=== PATIENT | male | born 1930 | race Caucasian/White ===

== ENCOUNTER 2016-10-18 19:03 | Inpatient (IN) | payer OTHER ==
[~2016-10-18] VITALS: Ht 165.1 cm; Wt 63.5 kg
[~2016-10-18 19:03] MED LIST: ATOR20TA38 PO; CIPR500T4 PO; GLIM2TAB PO; IBUP200C11 PO; LANT3I SC; LOSA50TA6 PO
[2016-10-18] MEDS ORDERED: NITROGLYCERIN 2% 1 GM OINT PKT TD STA (21:49)
[2016-10-18] MEDS ORDERED: ASPIRIN 81 MG TAB PO STA (21:49)
[2016-10-18] MEDS ORDERED: NITROGLYCERIN (SL) 0.4 MG TAB SL PRN (22:00)
[2016-10-18] MEDS ORDERED: OMEP40CA6 PO (22:44)
[2016-10-18] MEDS ORDERED: LOSA100T7 PO (22:44)
[2016-10-18] MEDS ORDERED: TAMS0.4C2 PO (22:44)
--- NOTE | 2016-10-18 22:49 | ERA ---
ER Documentation Chief Complaint Date/Time DATE: 10/18/16 TIME: 22:47 Chief Complaint CP that started at 1730 when he was cooking pt has htn, DM hx HPI Patient is a 86-year-old male with hypertension and diabetes who presents with chest pain. The patient has chest pain and dizziness. The patient says that he "saw all black" today and almost or did pass out. It started yesterday and was there all day and then was there again today especially at 6 PM. The chest pain is now gone. He did have subjective fever at home but no cough and no urinary symptoms. Upon review of old medical records this is the patient's third visit to the ER. His primary doctor is Dr. Tracy. ROS All systems reviewed and are negative except as per history of present illness. Medications Home Meds Reported Medications Omeprazole* (Omeprazole*) 40 Mg Capsule.dr, 40 MG PO DAILY, #30 CAP 10/18/16 Tamsulosin Hcl* (Tamsulosin Hcl*) 0.4 Mg Cap.er.24h, 0.4 MG PO DAILY, CAP 10/18/16 Losartan Potassium* (Losartan Potassium*) 100 Mg Tablet, 100 MG PO DAILY, TAB 10/18/16 Atorvastatin Calcium* (Atorvastatin Calcium*) 20 Mg Tablet, 20 MG PO QHS, #30 TAB 11/08/15 Insulin Glargine* (Lantus*) 100 Unit/Ml Soln, 15 UNIT SC HS, EA 11/03/14 Glimepiride* (Glimepiride*) 2 Mg Tablet, 2 MG PO QAM, TAB 11/03/14 Discontinued Reported Medications Ibuprofen* (Advil*) 200 Mg Capsule, 200 MG PO Q6H Y for PAIN, CAP 11/08/15 Losartan Potassium* (Losartan Potassium*) 50 Mg Tablet, 50 MG PO DAILY, TAB 11/08/15 Discontinued Scripts Ciprofloxacin Hcl* (Ciprofloxacin Hcl*) 500 Mg Tablet, 500 MG PO BID for 10 Days , TAB Prov:IDRIS ZHU MD 11/08/15 Allergies Allergies: Coded Allergies: Penicillins (Verified Allergy, Unknown, 10/18/16) PMhx/Soc History of Surgery: Yes (TURP) Anesthesia Reaction: No Hx Neurological Disorder: No Hx Respiratory Disorders: No Hx Cardiac Disorders: Yes (HTN) Hx Psychiatric Problems: Yes (mild dementia) Hx Miscellaneous Medical Probl: Yes (HYPERCHOLESTEREMIA, DM) Hx Alcohol Use: No Hx Substance Use: No Hx Tobacco Use: No FmHx Family History: No coronary disease Physical Exam Vitals Vital Signs Date Time Temp Pulse Resp B/P Pulse Ox O2 Delivery O2 Flow Rate FiO2 10/18/16 19:28 100.2 82 18 213/86 96 Physical Exam Const: No acute distress Head: Atraumatic Eyes: Normal Conjunctiva ENT: Normal External Ears, Nose and Mouth. Neck: Full range of motion..~ No meningismus. Resp: Clear to auscultation bilaterally Cardio: Regular rate and rhythm, no murmurs Abd: Soft, non tender, non distended. Normal bowel sounds Skin: No petechiae or rashes Back: No midline or flank tenderness Ext: No cyanosis, or edema Neur: Awake and alert Psych: Normal Mood and Affect Results 24 hrs Laboratory Tests Test 10/18/16 19:34 Bedside Glucose 427mg/dL Current Medications Medications (Trade) Dose Ordered Sig/Tripp Route PRN Reason Start Time Stop Time Status Last Admin Dose Admin Aspirin (Aspirin) 162 mg ONCE STAT PO 10/18/16 21:49 10/18/16 21:50 DC Nitroglycerin (Nitroglycerin 2% Oint) 1 inch ONCE STAT TD 10/18/16 21:49 10/18/16 21:51 DC Nitroglycerin (Nitroglycerin (Sl Tab) 0.4 Mg) 1 tab Q5M UP TO 3 DOSES PRN SL CHEST PAIN 10/18/16 22:00 Ondansetron HCl (Zofran Inj) 4 mg ER BRIDGE PRN IV NAUSEA AND/OR VOMITING 10/18/16 23:00 10/19/16 22:59 Acetaminophen (Tylenol Tab) 650 mg ER BRIDGE PRN PO MILD PAIN/FEVER 10/18/16 23:00 10/19/16 22:59 Procedures/MDM EKG read by me: Rate/Rhythm: Regular rate and rhythm at a rate of 87 Intervals: Normal Impression: No evidence of ischemia or arrhythmia Chest x-ray pending. Patient is an 86-year-old male with diabetes and hypertension who presents with chest pain and dizziness. He also had a near syncope or syncope event. At this point I believe the patient will need admission to a telemetry bed. I spoke with Dr. Berger from the panel team for admission as the patient has preferred [facility] insurance Dr. Berger is admitting for the panel team tonight. Laboratory studies are pending at this time as well as chest x-ray. I am most concerned for possible acute coronary syndrome. At this point I doubt pulmonary embolism or aortic dissection. Chest x-ray is pending which can rule out pneumonia or pneumothorax. The patient was given aspirin and nitroglycerin. The patient was hypertensive but this was prior to nitroglycerin. Departure Diagnosis: Primary Impression: Chest pain Qualified Code: R07.9 - Chest pain, unspecified type Additional Impression: Hypertension Qualified Code: I10 - Essential hypertension Condition: HERB Lincoln MD Oct 18, 2016 22:49
[2016-10-18 22:52] LABS: BASOPHILS % 0.4 % (0.0-2.0); EOSINOPHILS % 0.1 % (0.0-7.0); HEMATOCRIT 42.7 % (42.0-52.0); HEMOGLOBIN 14.3 g/dl (14.0-18.0); LYMPHOCYTES # 1.5 10^3/ul (0.8-2.9); LYMPHOCYTES % 14.5 % (15.0-51.0); MEAN CORPUSCULAR HEMOGLOBIN 29.7 pg (29.0-33.0); MEAN CORPUSCULAR HGB CONC 33.6 g/dl (32.0-37.0); MEAN CORPUSCULAR VOLUME 88.5 fl (82.0-101.0); MEAN PLATELET VOLUME 7.3 fl (7.4-10.4); MONOCYTE # 0.9 10^3/ul (0.3-0.9); MONOCYTES % 8.4 % (0.0-11.0); NEUTROPHILS % 76.6 % (39.0-77.0); PLATELET COUNT 208 10^3/UL (140-440); RED BLOOD COUNT 4.83 10^6/ul (4.70-6.10); RED CELL DISTRIBUTION WIDTH 13.7 % (11.5-14.5); UNCORRECTED WBC 10.4 10^3/ul (4.8-10.8); WHITE BLOOD COUNT 10.4 10^3/ul (4.8-10.8)
[2016-10-18 22:53] LABS: CONDITION 1
[2016-10-18 22:58] LABS: POTASSIUM 3.9 mmol/L (3.5-5.1)
[2016-10-18 22:59] LABS: INR 1.02; PROTIME 13.4 Sec (12.2-14.2)
[2016-10-18 23:00] LABS: CREATININE 0.61 mg/dl (0.61-1.24)
[2016-10-18] MEDS ORDERED: ONDANSETRON 4 MG INJ IV PRN (23:00)
[2016-10-18] MEDS ORDERED: ACETAMINOPHEN 325 MG TAB PO PRN (23:00)
[2016-10-18 23:01] LABS: CALCIUM 9.4 mg/dl (8.4-10.2)
[2016-10-18 23:11] LABS: PARTIAL THROMBOPLASTIN TIME 28.1 Sec (25.0-35.0)
[2016-10-18 23:13] LABS: TROPONIN-I 0.014 ng/ml (0.00-0.12)
--- NOTE | 2016-10-18 23:22 | RADRPT ---
PROCEDURE: XR Chest. CLINICAL INDICATION: Shortness of breath. TECHNIQUE: Single frontal view. COMPARISON: 11/08/2015. FINDINGS: The lungs are clear. The heart size is normal. There is calcification in the aorta consistent with atherosclerosis. There is no pleural effusion. There is no pneumothorax. IMPRESSION: 1. Atherosclerosis. 2. Clear lungs. RPTAT: QQ .Linwood Jaramillo MD, MD Date Time Electronically viewed and signed by .Linwood Jaramillo MD, MD on 10/18/2016 23:22 .R/
[2016-10-19 05:03] LABS: CREATINE KINASE 36 IU/L (23-200)
[2016-10-19 05:32] LABS: CK-MB 0.58 ng/ml (0.0-2.4); TROPONIN-I < 0.012 ng/ml (0.00-0.12)
[2016-10-19] MEDS ORDERED: ALBUTEROL/IPRATROPIUM (NEB) 3 ML AMP HHN PRN (09:30)
[2016-10-19] MEDS ORDERED: ACETAMINOPHEN 325 MG TAB PO PRN (09:30)
[2016-10-19] MEDS ORDERED: NITROGLYCERIN (SL) 0.4 MG TAB SL PRN (09:30)
[2016-10-19] MEDS ORDERED: ONDANSETRON 4 MG INJ IV PRN (09:30)
[2016-10-19] MEDS ORDERED: NACL 0.9% 3 ML SYG IV SCH (09:30)
[2016-10-19] MEDS ORDERED: morphine 2 MG INJ IV PRN (09:30)
[2016-10-19] MEDS ORDERED: GLUCAGON 1 MG INJ IM PRN (10:00)
[2016-10-19] MEDS ORDERED: DEXTROSE 50% 50 ML SYRINGE IV PRN ×2 (10:00)
[2016-10-19] MEDS ORDERED: INSULIN GLARGINE [LANtus] 3 ML PEN SC SCH (10:00)
[2016-10-19] MEDS ORDERED: GLUCOSE GEL 15 GRAM TUBE BUCCAL PRN (10:00)
[2016-10-19] MEDS ORDERED: GLUCOSE GEL 15 GRAM TUBE PO PRN ×2 (10:00)
[2016-10-19 10:25] LABS: CREATINE KINASE 33 IU/L (23-200)
[2016-10-19] MEDS: TAMSULOSIN (SR) 0.4 MG CAP PO SCH (10:35)
[2016-10-19] MEDS: LOSARTAN 50 MG TAB PO SCH (10:35)
[2016-10-19] MEDS: PANTOPRAZOLE (EC) 40 MG TAB PO SCH (10:35)
[2016-10-19] MEDS: ASPIRIN 81 MG TAB PO SCH (10:35)
[2016-10-19] MEDS: ENOXAPARIN 40 MG/0.4 ML SYG SC SCH (10:36)
[2016-10-19 10:50] LABS: CK-MB 0.99 ng/ml (0.0-2.4); TROPONIN-I < 0.012 ng/ml (0.00-0.12)
--- NOTE | 2016-10-19 10:57 | HP ---
DATE OF ADMISSION: 10/18/2016 TIME SEEN: 2330. CHIEF COMPLAINT: Chest pain and lightheadedness. HISTORY OF PRESENT ILLNESS: The patient is an 86-year-old male with a history of hypertension, type 2 diabetes, dementia, BPH, and GERD who presented to the emergency department with lightheadedness/ dizziness, chest pain and some shortness of breath. When he presented to the ER his blood pressure was 213/86, heart rate 82, respiratory rate 18, temperature of 100.2, and oxygen saturation of 96%. There was no reported loss of consciousness, seizure-like activity, nausea, vomiting, abdominal pastor n, or urinary symptoms. REVIEW OF SYSTEMS: Negative except as mentioned in the HPI. PAST MEDICAL HISTORY: As per HPI. PAST SURGICAL HISTORY: Left hip surgery and cataract surgery. ALLERGIES: NO KNOWN DRUG ALLERGIES. HOME MEDICATIONS: 1. Insulin. 2. Flomax. 3. Lipitor. 4. Losartan. 5. Prilosec. PHYSICAL EXAMINATION: VITAL SIGNS: Stable. GENERAL: The patient lying in bed, sleepy, arousable, in no acute distress. HEENT: No obvious head deformity. Pupils reactive to light. Extraocular muscles intact. CARDIOVASCULAR: Regular rate and rhythm with no extra sounds. LUNGS: Clear. ABDOMEN: Soft, nontender, nondistended. Positive bowel sounds. EXTREMITIES: No focal deficits. IMPRESSION: 1. Hypertensive urgency. 2. Lightheadedness/dizziness, secondary to above. 3. Diabetes. 4. Dementia. 5. Benign prostatic hypertrophy. 6. Gastroesophageal reflux disease. 7. Low grade fever. PLAN: Continue telemetry monitoring. Will adjust the antihypertensives as needed for better blood pressure control. Will continue his home medication with adjustments. He will be on insulin for hi s diabetes. Will obtain a 2D echo and a carotid Doppler ultrasound. Will also do urine culture and if needed will do blood culture because of the low-grade fever. Dictated By: ALEXEI BROWNE/DAPHNE Conf#: [id number] DID#: [id number]
--- NOTE | 2016-10-19 11:42 | RADRPT ---
PROCEDURE: Carotid ultrasound CLINICAL INDICATION: Near syncope, carotid bruits TECHNIQUE: Padilla scale, color doppler, spectral doppler ultrasound of the bilateral carotid and felicia tebral arteries. This study indirectly references the measurement of the distal ICA diameter as the denominator for s tenosis measurement. Validated velocity measurements with angiographic measurements, velocity criter ia are extrapolated from diameter data as defined by: *Cartoid artery stenosis: padilla-scale and Doppl er US diagnosis. Society of Radiologists in Ultrasound Consensus Conference. Radiology 2003; 229: 34 0-346. SRU Consensus Conference Criteria for the Diagnosis of Carotid Artery Stenosis* Degree of Stenosis, % ICA PSV, cm/sec Plaque Estimate, % ICA/CCA PSV Ratio Normal <125 None <2.0 <50 <125 <50 <2.0 50 69 125-230 >50 2.0-4.0 >70 but less than near occlusion >230 >50 <4.0 Near occlusion High, low, or undetectable Visible Variable Total occlusion Undetectable Visible, no detectable lumen Not applicable COMPARISON: No prior studies are available for comparison. FINDINGS: Location Right CCA91 cm/sec Prox ICA 111 cm/sec Mid ICA65 cm/sec Dist ICA78 cm/sec QYI294 cm/sec ICA/CCA1.2 Left CCA72 cm/sec Prox ICA 73 cm/sec Mid ICA67 cm/sec Dist ICA61 cm/sec YYV362 cm/sec ICA/CCA1.0 Plaque burden: A small amount of plaque is present within the visualized portions of both internal c arotid arteries however there is no evidence of flow acceleration to suggest a hemodynamically signi ficant stenosis. Antegrade flow is seen within the vertebral arteries bilaterally. IMPRESSION: A small amount of plaque is present within the visualized portions of both internal carotid arteries however there is no evidence of flow acceleration to suggest a hemodynamically significant stenosis . RPTAT: AADD .Kodi Munoz MD, Date Time Electronically viewed and signed by .Kodi Munoz MD, on 10/19/2016 11:41 .B/
[2016-10-19] MEDS ORDERED: INSULIN ASPART [NOVOLOG] 3 ML PEN SC SCH (12:00)
[2016-10-19] MEDS: INSULIN ASPART [NOVOLOG] 3 ML PEN SC SCH ×4 (14:11→23:02)
--- NOTE | 2016-10-19 16:59 | PN ---
Date/Time of Note Date/Time of Note DATE: 10/19/16 TIME: 16:55 Assessment/Plan VTE Prophylaxis VTE Prophylaxis Intervention: LMWH Lines/Catheters IV [facility] Saline Lock Assessment/Plan Chief Complaint/Hosp Course Assessment and plan 1. Reported chest pain. Serial troponins negative thus far. Follow-up echocardiogram. 2. Hypertensive urgency. We'll continue on antihypertensives and adjust as needed. Stable at present 3. Type 2 diabetes. Follow up on A1c. We'll adjust basal and mealtime insulin. Of note patient family did report that patient is not completely compliant with insulin regimen at home. 4. History of dementia. Continue fall precautions 5. BPH. Patient to be resumed on his home medication GERD prophylaxis: PPI DVT prophylaxis: SCDs Disposition and plan: Loan Review Analyst follow. Follow-up with echocardiogram. We'll get physical therapy to follow. Discussed but of care with Dr. Osullivan Problems: Subjective 24 Hr Interval Summary Free Text/Dictation Resting at this time. No apparent distress. Appears comfortable at present Exam/Review of Systems Vital Signs Vitals Vital Signs Date Time Temp Pulse Resp B/P Pulse Ox O2 Delivery O2 Flow Rate FiO2 10/19/16 13:15 98.4 70 20 159/59 96 Room Air 4.0 Exam General: No acute signs or symptoms of distres Eyes: pupils equal round, Anicteric sclera Neck: Supple nontender, no JVD Cardiac: S1, S2 auscultated, regular rhythm and rate Pulmonary: No coarse rhonchi or breathing auscultated GI: Abdomen soft nontender nondistended, bowel sounds active Extremities: No edema bilateral lower extremities Skin: Clean dry and intact Neurologic: Alert to person place and time and situation Results Result Diagram: 10/18/16222910/18/162229 Results 24 hrs Laboratory Tests Test 10/18/16 19:34 10/18/16 22:30 10/19/16 04:15 10/19/16 10:00 Bedside Glucose 427 *H Activated Partial Thromboplast Time 28.1 Anion Gap 18 H Basophils # 0.0 Basophils % 0.4 Blood Morphology Comment Blood Urea Nitrogen 15 Calcium Level 9.4 Carbon Dioxide Level 28 Chloride Level 95 L Creatinine 0.61 Eosinophils # 0.0 Eosinophils % 0.1 Glucose Level 342 H Hematocrit 42.7 Hemoglobin 14.3 INR International Normalized Ratio 1.02 Lymphocytes # 1.5 Lymphocytes % 14.5 L Mean Corpuscular Hemoglobin 29.7 Mean Corpuscular Hemoglobin Concent 33.6 Mean Corpuscular Volume 88.5 Mean Platelet Volume 7.3 L Monocytes # 0.9 Monocytes % 8.4 Neutrophils # 8.0 H Neutrophils % 76.6 Nucleated Red Blood Cells # 0.0 Nucleated Red Blood Cells % 0.0 Platelet Count 208 # Potassium Level 3.9 Prothrombin Time 13.4 Prothrombin Time Ratio 1.0 Red Blood Count 4.83 Red Cell Distribution Width 13.7 Sodium Level 137 Troponin I 0.014 < 0.012 < 0.012 White Blood Count 10.4 # Creatine Kinase 36 33 Creatine Kinase Index 1.6 3.0 Creatinine Kinase MB (Mass) 0.58 0.99 Test 10/19/16 13:00 10/19/16 15:00 Bedside Glucose 335 H Troponin I < 0.012 Medications Medications Current Medications Ondansetron HCl (Zofran Inj) 4 mg Q6H PRN IV NAUSEA AND/OR VOMITING; Start 10/19 at 09:30 Aspirin (Aspirin) 81 mg DAILY PO Last administered on 10/19/16 10:35; Admin Dose 81 MG; Start 10/19/16 at 10:00 Nitroglycerin (Nitroglycerin (Sl Tab) 0.4 Mg) 1 tab Q5M PRN SL CHEST PAIN; Start 10/19/16 at 09:30 Acetaminophen (Tylenol Tab) 650 mg Q6H PRN PO PAIN LEVEL 1-3 OR FEVER; Start at 09:30 Morphine Sulfate (morphine) 2 mg Q4H PRN IV PAIN LEVEL 7-10; Start 10/19/16 at 09:30 Enoxaparin Sodium (Lovenox) 40 mg DAILY SC Last administered on 10/19/16 10:36 ; Admin Dose 40 MG; Start 10/19/16 at 10:00 Atorvastatin Calcium (Lipitor) 20 mg QHS PO ; Start 10/19/16 at 21:00 Losartan Potassium (Cozaar) 100 mg DAILY PO Last administered on 10/19/16 10:35 ; Admin Dose 100 MG; Start 10/19/16 at 10:00 Tamsulosin HCl (Flomax) 0.4 mg DAILY PO Last administered on 10/19/16 10:35; Admin Dose 0.4 MG; Start 10/19/16 at 10:00 Pantoprazole (Protonix Tab) 40 mg DAILY@06 PO Last administered on 10/19/16t 10: 35; Admin Dose 40 MG; Start 10/19/16 at 10:00 Miscellaneous Information 1 ea NOTE XX ; Start 10/19/16 at 10:00 Glucose (Glutose) 15 gm Q15M PRN PO DECREASED GLUCOSE; Start 10/19/16 at 10:00 Glucose (Glutose) 22.5 gm Q15M PRN PO DECREASED GLUCOSE; Start 10/19/16 at 10:00 Dextrose (D50w Syringe) 25 ml Q15M PRN IV DECREASED GLUCOSE; Start 10/19/16 at 10:00 Dextrose (D50w Syringe) 50 ml Q15M PRN IV DECREASED GLUCOSE; Start 10/19/16 at 10:00 Glucagon (Glucagen) 1 mg Q15M PRN IM DECREASED GLUCOSE; Start 10/19/16 at 10:00 Glucose (Glutose) 15 gm Q15M PRN BUCCAL DECREASED GLUCOSE; Start 10/19/16 at 10: 00 Insulin Glargine (Lantus) 25 unit QAM SC ; Start 10/20/16 at 09:00; Status WOOD PALACIO Oct 19, 2016 16:59
--- NOTE | 2016-10-19 19:59 | RADRPT ---
Echocardiogram Report Patient Name: SHELLY CHAWLA Gender: Male Date: 1930 Study Date: 19-Oct-2016 Curriculum Development Manager: Elizabeth Doan RDCS Location: 1 Ref. Physician: ALEXEI GRIFFIN Quality: Good Procedures: Transthoracic echocardiogram with complete 2D, M-Mode, and doppler examination. Indications: Chest Pain. Near Syncope. 2D/M Mode Doppler Measurement Value Normal Ranges Measurement Value Normal Ranges LVIDd 2D 4.6 3.5 - 5.6 cm AV Peak Micha 1.5 m/sec LVIDs 2D 2.2 2.1 - 4.1 cm AV Peak PG 9.0 mmHg FS 2D 51.6 % LVOT Peak Micha 1.1 m/sec LVPWd 2D 1.0 0.6 - 1.1 cm LVOT Peak PG 5.0 mmHg IVSd 2D 0.9 0.6 - 1.1 cm MV E Peak Micha 0.7 m/sec IVS/LVPW 2D 0.9 MV A Peak Micha 1.0 m/sec AoR Diam 2D 3.0 2.0 - 3.7 cm MV E/A 0.7 LA/Ao 2D 1 0 - 1 MV Decel Time 183 msec EDV 2D 96.7 cm3 MV E/A 0.7 ESV 2D 10.9 cm3 TR Peak Micha 2.5 m/sec LA Dimen 2D 3.2 2.3 - 4.0 cm TR Peak PG 24.0 mmHg RVSP 27.0 mmHg Findings Left Ventricle: Normal left ventricular systolic function. Normal left ventricular cavity size. Normal left ventricular wall thickness. Ejection fraction is visually estimated at 60 %. Tissue Doppler/Mitral Doppler indices are consistent with impaired relaxation (Stage I diastolic dysfunction). Right Ventricle: Normal right ventricular size. Normal right ventricular systolic function. Left Atrium: The left atrium is normal in size. Right Atrium: The right atrium is normal in size. Mitral Valve: Normal appearance of the mitral valve. Mild mitral annular calcification. Trace mitral regurgitation. Aortic Valve: No significant aortic stenosis or insufficiency. Aortic cusps appear mildly calcified. Tricuspid Valve: Normal appearance of the tricuspid valve. Estimated peak PA systolic pressure 27 mmHg. There is trace tricuspid regurgitation. Pericardium: Normal pericardium with no significant pericardial effusion. Aorta: Normal aortic root. IVC: Normal size and normal respiratory collapse consistent with normal right atrial pressure. Conclusions 1.Normal left ventricular systolic function. Normal left ventricular cavity size. Normal left ventricular wall thickness. Ejection fraction is visually estimated at 60 %. Tissue Doppler/Mitral Doppler indices are consistent with impaired relaxation (Stage I diastolic dysfunction). 2.Normal appearance of the mitral valve. Mild mitral annular calcification. Trace mitral regurgitation. 3.Normal appearance of the tricuspid valve. Estimated peak PA systolic pressure 27 mmHg. There is trace tricuspid regurgitation. Electronically Signed By: Jim Green 19-Oct-2016 19:58:34 -0800 Patient Name: SHELLY CHAWLA Study Date: 19-Oct-2016 [id number]
--- NOTE | 2016-10-19 20:37 | CONS ---
DATE OF ADMISSION: 10/18/2016 DATE OF CONSULTATION: 10/19/2016 REASON FOR CONSULTATION: Chest pain/assess for acute coronary syndrome. REQUESTING PHYSICIAN: Kodi Griffin MD/Wood Garsia NP HISTORY OF PRESENT ILLNESS: Mr. Wade is an 86-year-old male with history of hypertension, diabe patience mellitus, dementia, BPH, gastroesophageal reflux disease, who initially had complaints of shortn ess of breath, dizziness, lightheadedness, and substernal chest pain described as a pressure-like se nsation. Patient states symptoms have been ongoing for approximately 2 days. Upon arrival in the e mergency department, temperature of 100.2, blood pressure markedly elevated 213/80, pulse 82, respir ations 18, saturating 96%. The patient's labs revealed white blood count 10.4, hemoglobin 14.3, ligia telet count of 208,000. Sodium 137, potassium 3.9, creatinine 0.6, BUN 15, glucose 427. Troponin n egative. INR 1.0. The patient underwent a chest x-ray revealing atherosclerosis, but clear lungs. The patient underwent a carotid Doppler revealing a small amount plaque present within the left por tion of both internal carotids, however, no evidence for hemodynamically significant stenoses. The patient's electrocardiogram, normal sinus rhythm, rate of 87, normal axis, normal intervals, mild si nus arrhythmia with nonspecific ST-T abnormalities diffusely. The patient subsequently has been swapna ated with insulin for elevated blood sugars, aspirin, nitro paste 1 inch, and now awaits admit to [facility] floor for further evaluation and treatment. PAST MEDICAL HISTORY: As above in HPI. MEDICATIONS CURRENTLY IN HOSPITAL: 1. Lantus 25 units subQ q.a.m. 2. Lipitor 20 mg at bedtime. 3. Aspirin 81 mg daily. 4. Lovenox 40 mg subQ daily. 5. Cozaar 100 mg daily. 6. 0.4 mg daily. 7. Protonix 40 mg daily. 8. Tylenol p.r.n. 9. Morphine p.r.n. 10. DuoNeb p.r.n. 11. Zofran p.r.n. ALLERGIES: PENICILLIN. SOCIAL HISTORY: No tobacco, ETOH, or illicit drug use. FAMILY HISTORY: No history of sudden cardiac or early CAD. REVIEW OF SYSTEMS: As above in HPI. CONSTITUTIONAL: No fevers, chills. PULMONARY: Positive shortness of breath. CARDIOVASCULAR: Positive chest pain. GASTROINTESTINAL: No vomiting. GENITOURINARY: No hematuria. MUSCULOSKELETAL: Degenerative joint disease. PSYCHIATRIC: No documented psychiatric history. NEUROLOGIC: History of dementia. PHYSICAL EXAMINATION: VITAL SIGNS: Temperature of 98.9, blood pressure most recently of 149/52, pulse 74, respiratory rat e 20, saturating 100%. GENERAL: The patient is alert, awake, in no acute distress. NECK: JVP approximately 8 cm of water. CHEST: Fair movement throughout with mildly-decreased breath sounds at bases bilaterally. HEART: Regular rate and rhythm. Normal S1, S2, I/ systolic murmur, nondisplaced PMI. ABDOMEN: Positive bowel sounds, soft. EXTREMITIES: No edema, 1+ pulses bilaterally, posterior tibial. LABORATORIES: As above in HPI. Most recently from today, troponin negative x3. IMAGING STUDIES: As above in HPI. No further imaging studies for my review at this time. ECG: As above in HPI. No further electrocardiograms for my review at this time. IMPRESSION: 1. Chest pain, assess for acute coronary syndrome. 2. Abnormal electrocardiogram, assess for acute coronary syndrome. 3. Hypertension, slowly improving on oral antihypertensive, but continues to be mildly elevated. 4. Dyslipidemia. 5. Dizziness, rule out cardiac arrhythmia, rule out cardiac etiology. 6. Diabetes mellitus. RECOMMENDATIONS: 1. At this time, would admit patient to telemetry monitoring to continue to follow rhythm and rate control closely. 2. Continue the patient's current aspirin for prophylaxis against cardiovascular events. 3. Continue the patient's current losartan for control of blood pressure, and will additionally ini tiate the patient on a beta-radha in the setting of chest pain, EKG abnormalities, and to also imp rove systolic blood pressure, increase O2 demand. 4. Check a fasting lipid panel for general risk stratification, and adjust the patient's statin the rapy as necessary. 5. We will follow up the patient's 2D echo for assessment of ejection fraction, wall motion, and an y major valve abnormalities. Given the patient's multiple cardiac risk factors and abnormal cardiac findings, I believe this patient will benefit from further risk stratification as an inpatient with a Lexiscan stress test, will thus be scheduled to take place first thing in the morning. Thank you for allowing me to take part in the care of this patient. I will continue to follow along very closely with you. Further recommendations will be made as the patient progresses through his inpatient hospital course. Dictated By: LUIS MIGUEL SIFUENTES/DAPHNE Conf#: [id number] DID#: [id number] CC: WOOD GARSIA NP; KODI GRIFFIN MD;*EndCC*
[2016-10-19] MEDS: ATORVASTATIN 20 MG TAB PO SCH (20:42)
[2016-10-19] MEDS: METOPROLOL 25 MG TAB PO SCH (20:43)
[2016-10-19 20:49] VITALS: TEMP 97.7
[2016-10-19 22:00] VITALS: BP 131/62; PULSE 78; RESP 18
[2016-10-19 23:53] VITALS: PULSE 80
[2016-10-20] VITALS (16 sets, daily range): BP systolic 117–173; BP diastolic 57–80; PULSE 54–103; RESP 15–19; Ht 165.1 cm; Wt 63.5 kg
[2016-10-20] MEDS: PANTOPRAZOLE (EC) 40 MG TAB PO SCH (05:47)
[2016-10-20] MEDS: hydrALAzine 20 MG INJ IV PRN (05:47)
[2016-10-20 06:18] LABS: BASOPHILS % 0.5 % (0.0-2.0); EOSINOPHILS # 0.1 10^3/ul (0.0-0.5); HEMATOCRIT 36.9 % (42.0-52.0); HEMOGLOBIN 12.6 g/dl (14.0-18.0); LYMPHOCYTES # 1.5 10^3/ul (0.8-2.9); LYMPHOCYTES % 16.1 % (15.0-51.0); MEAN CORPUSCULAR HGB CONC 34.2 g/dl (32.0-37.0); MEAN CORPUSCULAR VOLUME 87.8 fl (82.0-101.0); MEAN PLATELET VOLUME 7.7 fl (7.4-10.4); MONOCYTE # 0.7 10^3/ul (0.3-0.9); MONOCYTES % 7.4 % (0.0-11.0); NEUTROPHIL # 6.8 10^3/ul (1.6-7.5); PLATELET COUNT 189 10^3/UL (140-440); RED BLOOD COUNT 4.21 10^6/ul (4.70-6.10); RED CELL DISTRIBUTION WIDTH 13.2 % (11.5-14.5); UNCORRECTED WBC 9.1 10^3/ul (4.8-10.8); WHITE BLOOD COUNT 9.1 10^3/ul (4.8-10.8)
[2016-10-20 06:39] LABS: ALBUMIN 3.1 g/dl (3.3-4.9)
[2016-10-20 06:40] LABS: POTASSIUM 3.9 mmol/L (3.5-5.1)
[2016-10-20 06:42] LABS: ALBUMIN/GLOBULIN RATIO 1.03; BILIRUBIN,INDIRECT 0.3 mg/dl (0-1.1); BILIRUBIN,TOTAL 0.3 mg/dl (0.2-1.3); CREATININE 0.63 mg/dl (0.61-1.24); TOTAL PROTEIN 6.1 g/dl (6.1-8.1)
[2016-10-20 06:43] LABS: CALCIUM 8.5 mg/dl (8.4-10.2); CHOL/HDL RATIO 3.7 RATIO; MAGNESIUM 1.6 mg/dl (1.7-2.5)
[2016-10-20 06:48] LABS: CONDITION 1
[2016-10-20 06:56] LABS: THYROID STIMULATING HORMONE 1.65 MIU/L (0.465-4.680)
[2016-10-20] MEDS: INSULIN ASPART [NOVOLOG] 3 ML PEN SC SCH ×7 (08:00→21:00)
[2016-10-20] MEDS: ASPIRIN 81 MG TAB PO SCH (08:26)
[2016-10-20] MEDS: LOSARTAN 50 MG TAB PO SCH (08:26)
[2016-10-20] MEDS: TAMSULOSIN (SR) 0.4 MG CAP PO SCH (08:26)
[2016-10-20] MEDS: METOPROLOL 25 MG TAB PO SCH (08:26)
[2016-10-20] MEDS: INSULIN GLARGINE [LANtus] 3 ML PEN SC SCH (08:29)
[2016-10-20] MEDS: ENOXAPARIN 40 MG/0.4 ML SYG SC SCH (08:30)
--- NOTE | 2016-10-20 10:24 | QN ---
Documentation Comment Response was called roughly around 10:05 AM. Patient was found to have heart rate in the 30s with also reported nonverbal for several seconds however there was no report of loss of consciousness. Was reported the patient was getting up from the chair and likely did vasovagal versus experience orthostatic hypotension. Patient was brought back to the bed,and tolerated well with HR going back into the 60s. no reports in drop of BP with systolic in 120s. Patient currently alert and oriented. No reports of chest pain/ dyspnea/ or headache. Stable at present. EKG done with normal sinus rhythm. no resp distress noted. Will check orthostatic vital signs. Cardiology to be notified Discussed with WOOD Max Oct 20, 2016 10:24
[2016-10-20] MEDS ORDERED: REGADENOSON 0.4 MG/5 ML SYG ONE (12:22)
--- NOTE | 2016-10-20 12:58 | CONS ---
Date/Time of Note Date/Time of Note DATE: 10/20/16 TIME: 12:53 Assessment/Plan Assessment/Plan Chief Complaint/Hosp Course IMPRESSION: 1. Chest pain, assess for acute coronary syndrome.-negative troponin x 3/NL EF by echo this admit 2. Abnormal electrocardiogram, assess for acute coronary syndrome. 3. Hypertension, slowly improving on oral antihypertensive, but continues to be mildly elevated. 4. Dyslipidemia. 5. Dizziness, rule out cardiac arrhythmia, rule out cardiac etiology.-had epsiode of bradycardia this AM to 30's 6. Diabetes mellitus. 7. Bradycardia to 30's this am with some dizziness. Self limited. Had just received BB/TSH WNL this admission ReccL: -Tele -d/c BB and follow rhythm/rate closely -Continue losartan -Continue statin -Lexiscan stress today Problems: Consultation Date/Type/Reason Admit Date/Time Oct 18, 2016 at 22:42 Initial Consult Date 10/19/2016 Type of Consultation: Cardiology Reason for Consultation Chest pain Referring Provider: HALEY CROWELL Exam/Review of Systems Vital Signs Vitals Vital Signs Date Time Temp Pulse Resp B/P Pulse Ox O2 Delivery O2 Flow Rate FiO2 10/20/16 12:40 70 10/20/16 12:38 Nasal Cannula 3.0 10/20/16 12:04 98.0 19 117/59 98 Intake and Output 10/19/16 10/19/16 10/20/16 15:00 23:00 07:00 Intake Total 200 ml Balance 200 ml Exam Review of Systems: CONSTITUTIONAL: No fevers, chills. PULMONARY: No sob CARDIOVASCULAR: No chest pain/palpitations GASTROINTESTINAL: No nausea/vomiting. GENITOURINARY: No hematuria/dysuria. MUSCULOSKELETAL: No myagias/arthalgias. PSYCHIATRIC: The patient denies depression. NEUROLOGIC: No weakness Constitutional: alert Psych: no complaints Head: normocephalic ENMT: mucosa pink and moist Neck: jvd (8cm water), supple Respiratory: clear to auscultation Cardiovascular: regular rate and rhythm Gastrointestinal: non-tender, soft Musculoskeletal: muscle tone (normal) Extremities: edema (None) Results Result Diagram: 10/20/16 0520 10/20/16 0520 Results 24 hrs Laboratory Tests Test 10/19/16 13:00 10/19/16 15:00 10/19/16 18:24 10/19/16 19:22 Bedside Glucose 335 H 247 H 247 H Troponin I < 0.012 Test 10/19/16 22:48 10/20/16 05:20 10/20/16 07:47 10/20/16 10:04 Bedside Glucose 287 H 273 H 218 Alanine Aminotransferase (ALT/SGPT) 35 Albumin 3.1 L Albumin/Globulin Ratio 1.03 Alkaline Phosphatase 90 Anion Gap 15 Aspartate Amino Transf (AST/SGOT) 24 Basophils # 0.0 Basophils % 0.5 Blood Urea Nitrogen 20 Calcium Level 8.5 Carbon Dioxide Level 26 Chloride Level 102 Cholesterol Level 135 Cholesterol/HDL Ratio 3.7 Creatinine 0.63 Direct Bilirubin 0.00 Eosinophils # 0.1 Eosinophils % 1.0 Globulin 3.00 Glucose Level 295 H HDL Cholesterol 36 Hematocrit 36.9 L Hemoglobin 12.6 L Hemoglobin A1c 11.9 H Indirect Bilirubin 0.3 LDL Cholesterol, Calculated 85 Lymphocytes # 1.5 Lymphocytes % 16.1 Magnesium Level 1.6 L Mean Corpuscular Hemoglobin 30.0 Mean Corpuscular Hemoglobin Concent 34.2 Mean Corpuscular Volume 87.8 Mean Platelet Volume 7.7 Monocytes # 0.7 Monocytes % 7.4 Neutrophils # 6.8 Neutrophils % 75.0 Nucleated Red Blood Cells # 0.0 Nucleated Red Blood Cells % 0.0 Platelet Count 189 Potassium Level 3.9 Red Blood Count 4.21 L Red Cell Distribution Width 13.2 Sodium Level 139 Thyroid Stimulating Hormone (TSH) 1.650 Total Bilirubin 0.3 Total Protein 6.1 Triglycerides Level 69 White Blood Count 9.1 Test 10/20/16 11:55 Bedside Glucose 203 Medications Medications Current Medications Ondansetron HCl (Zofran Inj) 4 mg Q6H PRN IV NAUSEA AND/OR VOMITING; Start 10/19 at 09:30 Aspirin (Aspirin) 81 mg DAILY PO Last administered on 10/20/16t 08:26; Admin Dose 81 MG; Start 10/19/16 at 10:00 Nitroglycerin (Nitroglycerin (Sl Tab) 0.4 Mg) 1 tab Q5M PRN SL CHEST PAIN; Start 10/19/16 at 09:30 Acetaminophen (Tylenol Tab) 650 mg Q6H PRN PO PAIN LEVEL 1-3 OR FEVER; Start at 09:30 Morphine Sulfate (morphine) 2 mg Q4H PRN IV PAIN LEVEL 7-10; Start 10/19/16 at 09:30 Enoxaparin Sodium (Lovenox) 40 mg DAILY SC Last administered on 10/20/16 08:30 ; Admin Dose 40 MG; Start 10/19/16 at 10:00 Atorvastatin Calcium (Lipitor) 20 mg QHS PO Last administered on 10/19/16 20:42 ; Admin Dose 20 MG; Start 10/19/16 at 21:00 Losartan Potassium (Cozaar) 100 mg DAILY PO Last administered on 10/20/16 08:26 ; Admin Dose 100 MG; Start 10/19/16 at 10:00 Tamsulosin HCl (Flomax) 0.4 mg DAILY PO Last administered on 10/20/16 08:26; Admin Dose 0.4 MG; Start 10/19/16 at 10:00 Pantoprazole (Protonix Tab) 40 mg DAILY@06 PO Last administered on 10/20/16 05: 47; Admin Dose 40 MG; Start 10/19/16 at 10:00 Miscellaneous Information 1 ea NOTE XX ; Start 10/19/16 at 10:00 Glucose (Glutose) 15 gm Q15M PRN PO DECREASED GLUCOSE; Start 10/19/16 at 10:00 Glucose (Glutose) 22.5 gm Q15M PRN PO DECREASED GLUCOSE; Start 10/19/16 at 10:00 Dextrose (D50w Syringe) 25 ml Q15M PRN IV DECREASED GLUCOSE; Start 10/19/16 at 10:00 Dextrose (D50w Syringe) 50 ml Q15M PRN IV DECREASED GLUCOSE; Start 10/19/16 at 10:00 Glucagon (Glucagen) 1 mg Q15M PRN IM DECREASED GLUCOSE; Start 10/19/16 at 10:00 Glucose (Glutose) 15 gm Q15M PRN BUCCAL DECREASED GLUCOSE; Start 10/19/16 at 10: 00 Insulin Glargine (Lantus) 25 unit QAM SC Last administered on 10/20/16 08:29; Admin Dose 25 UNIT; Start 10/20/16 at 09:00 Influenza Virus Vaccine (Fluzone) 0.5 ml ONCE ONCE IM* ; Start 10/22/16 at 09:00 ; Stop 10/22/16 at 09:01 Hydralazine HCl (Apresoline) 10 mg Q4H PRN IV prn for systolic above 160 Last administered on 10/20/16t 05:47; Admin Dose 10 MG; Start 10/20/16 at 06:00 LUIS MIGUEL BRYAN Oct 20, 2016 12:58
--- NOTE | 2016-10-20 15:13 | PN ---
Date/Time of Note Date/Time of Note DATE: 10/20/16 TIME: 15:08 Assessment/Plan VTE Prophylaxis VTE Prophylaxis Intervention: SCD's Lines/Catheters IV [facility] Type ([facility] Saline [facility] Urinary Cath still in place: No Assessment/Plan Chief Complaint/Hosp Course Assessment and plan 1. Reported chest pain. Serial troponins negative thus far. Echocardiogram Noted with ejection fraction of 60% with stage I diastolic dysfunction 2. Hypertensive urgency. We'll continue on antihypertensives and adjust as needed. Stable at present 3. Type 2 diabetes. Follow up on A1c. We'll adjust basal and mealtime insulin. Of note patient family did report that patient is not completely compliant with insulin regimen at home. 4. History of dementia. Continue fall precautions 5. BPH. Patient to be resumed on his home medication 6. Reported bradycardia as low as the 30s. Suspect vasovagal. Stable at present. Follow-up with cardiogenic recommendations. GERD prophylaxis: PPI DVT prophylaxis: SCDs Disposition and plan: Plan for stress test today. We'll follow-up with result. Insulin regimen to be adjusted. Discussed but of care with Dr. Osullivan Problems: Subjective 24 Hr Interval Summary Free Text/Dictation Did have ORE GRADER early this morning due to reported low heart rate. Improved at present. No apparent distress noted at this time. Exam/Review of Systems Vital Signs Vitals Vital Signs Date Time Temp Pulse Resp B/P Pulse Ox O2 Delivery O2 Flow Rate FiO2 10/20/16 12:40 70 10/20/16 12:38 Nasal Cannula 3.0 10/20/16 12:04 98.0 19 117/59 98 Intake and Output 10/19/16 10/19/16 10/20/16 15:00 23:00 07:00 Intake Total 200 ml Balance 200 ml Exam General: No acute signs or symptoms of distress Eyes: pupils equal round, Anicteric sclera Neck: Supple nontender, no JVD Cardiac: S1, S2 auscultated, regular rhythm and rate Pulmonary: No coarse rhonchi or breathing auscultated GI: Abdomen soft nontender nondistended, bowel sounds active Extremities: No edema bilateral lower extremities Skin: Clean dry and intact Neurologic: Alert to person place and time and situation Results Result Diagram: 10/20/16 0520 10/20/16 0520 Results 24 hrs Laboratory Tests Test 10/19/16 18:24 10/19/16 19:22 10/19/16 22:48 10/20/16 05:20 Bedside Glucose 247 H 247 H 287 H Alanine Aminotransferase (ALT/SGPT) 35 Albumin 3.1 L Albumin/Globulin Ratio 1.03 Alkaline Phosphatase 90 Anion Gap 15 Aspartate Amino Transf (AST/SGOT) 24 Basophils # 0.0 Basophils % 0.5 Blood Urea Nitrogen 20 Calcium Level 8.5 Carbon Dioxide Level 26 Chloride Level 102 Cholesterol Level 135 Cholesterol/HDL Ratio 3.7 Creatinine 0.63 Direct Bilirubin 0.00 Eosinophils # 0.1 Eosinophils % 1.0 Globulin 3.00 Glucose Level 295 H HDL Cholesterol 36 Hematocrit 36.9 L Hemoglobin 12.6 L Hemoglobin A1c 11.9 H Indirect Bilirubin 0.3 LDL Cholesterol, Calculated 85 Lymphocytes # 1.5 Lymphocytes % 16.1 Magnesium Level 1.6 L Mean Corpuscular Hemoglobin 30.0 Mean Corpuscular Hemoglobin Concent 34.2 Mean Corpuscular Volume 87.8 Mean Platelet Volume 7.7 Monocytes # 0.7 Monocytes % 7.4 Neutrophils # 6.8 Neutrophils % 75.0 Nucleated Red Blood Cells # 0.0 Nucleated Red Blood Cells % 0.0 Platelet Count 189 Potassium Level 3.9 Red Blood Count 4.21 L Red Cell Distribution Width 13.2 Sodium Level 139 Thyroid Stimulating Hormone (TSH) 1.650 Total Bilirubin 0.3 Total Protein 6.1 Triglycerides Level 69 White Blood Count 9.1 Test 10/20/16 07:47 10/20/16 10:04 10/20/16 11:55 Bedside Glucose 273 H 218 203 Medications Medications Current Medications Ondansetron HCl (Zofran Inj) 4 mg Q6H PRN IV NAUSEA AND/OR VOMITING; Start 10/19 at 09:30 Aspirin (Aspirin) 81 mg DAILY PO Last administered on 10/20/16t 08:26; Admin Dose 81 MG; Start 10/19/16 at 10:00 Nitroglycerin (Nitroglycerin (Sl Tab) 0.4 Mg) 1 tab Q5M PRN SL CHEST PAIN; Start 10/19/16 at 09:30 Acetaminophen (Tylenol Tab) 650 mg Q6H PRN PO PAIN LEVEL 1-3 OR FEVER; Start at 09:30 Morphine Sulfate (morphine) 2 mg Q4H PRN IV PAIN LEVEL 7-10; Start 10/19/16 at 09:30 Enoxaparin Sodium (Lovenox) 40 mg DAILY SC Last administered on 10/20/16 08:30 ; Admin Dose 40 MG; Start 10/19/16 at 10:00 Atorvastatin Calcium (Lipitor) 20 mg QHS PO Last administered on 10/19/16 20:42 ; Admin Dose 20 MG; Start 10/19/16 at 21:00 Losartan Potassium (Cozaar) 100 mg DAILY PO Last administered on 10/20/16 08:26 ; Admin Dose 100 MG; Start 10/19/16 at 10:00 Tamsulosin HCl (Flomax) 0.4 mg DAILY PO Last administered on 10/20/16 08:26; Admin Dose 0.4 MG; Start 10/19/16 at 10:00 Pantoprazole (Protonix Tab) 40 mg DAILY@06 PO Last administered on 10/20/16 05: 47; Admin Dose 40 MG; Start 10/19/16 at 10:00 Miscellaneous Information 1 ea NOTE XX ; Start 10/19/16 at 10:00 Glucose (Glutose) 15 gm Q15M PRN PO DECREASED GLUCOSE; Start 10/19/16 at 10:00 Glucose (Glutose) 22.5 gm Q15M PRN PO DECREASED GLUCOSE; Start 10/19/16 at 10:00 Dextrose (D50w Syringe) 25 ml Q15M PRN IV DECREASED GLUCOSE; Start 10/19/16 at 10:00 Dextrose (D50w Syringe) 50 ml Q15M PRN IV DECREASED GLUCOSE; Start 10/19/16 at 10:00 Glucagon (Glucagen) 1 mg Q15M PRN IM DECREASED GLUCOSE; Start 10/19/16 at 10:00 Glucose (Glutose) 15 gm Q15M PRN BUCCAL DECREASED GLUCOSE; Start 10/19/16 at 10: 00 Insulin Glargine (Lantus) 25 unit QAM SC Last administered on 10/20/16 08:29; Admin Dose 25 UNIT; Start 10/20/16 at 09:00 Influenza Virus Vaccine (Fluzone) 0.5 ml ONCE ONCE IM* ; Start 10/22/16 at 09:00 ; Stop 10/22/16 at 09:01 Hydralazine HCl (Apresoline) 10 mg Q4H PRN IV prn for systolic above 160 Last administered on 10/20/16t 05:47; Admin Dose 10 MG; Start 10/20/16 at 06:00 WOOD BRUCE Oct 20, 2016 15:12
[2016-10-20] MEDS ORDERED: MAGNESIUM SULFATE 2 GM/50 ML 50 ML IVPB ONE (15:30)
--- NOTE | 2016-10-20 15:32 | RADRPT ---
PROCEDURE: Lexiscan myocardial perfusion study CLINICAL INDICATION: 86 -year-old patient complaining of chest pain. TECHNIQUE: Lexiscan 0.4 mg intravenously separate acquisition gated myocardial perfusion SPECT usi ng Tc 99m Myoview 30.2 mCi intravenously at stress and Tc-99m Myoview, 9.8 mCi intravenously at rest was performed using the rest/stress sequence. Poststress Myoview SPECT images were obtained in the supine position. COMPARISON: No prior studies. FINDINGS: Perfusion images reveal mild nonreversible reduction in perfusion in the inferior wall, likely relat ed to patient motion. Lexiscan post stress gated SPECT images demonstrate no wall motion abnormalities. IMPRESSION: 1. No evidence of stress-induced ischemia. 2. No wall motion abnormalities. 3. The left ventricle ejection fraction at stress is 57% A call report was made to Dr. Green and 03:30 p.m. on October 20, 2016. RPTAT: HH .Lizzy Newberry MD, MD Date Time Electronically viewed and signed by .Lizzy Newberry MD, on 10/20/2016 15:32 .L/
--- NOTE | 2016-10-20 17:48 | CARRPT ---
DATE OF PROCEDURE: 10/20/2016 PROCEDURE: Lexiscan Cardiolite stress test, electrocardiogram portion INDICATION: Chest pain, assess for acute coronary syndrome, assess for ischemia. BASELINE VITAL SIGNS AND ELECTROCARDIOGRAM: Pulse 72, blood pressure 131/61. Electrocardiogram rev eals normal sinus rhythm, rate of 72, normal axis, left ventricular hypertrophy by voltage criteria with lateral T-wave inversion. PROCEDURE TECHNIQUE: The patient underwent standard Lexiscan infusion protocol over 10 seconds foll owed by radiolabeled tracer. The patient's test was stopped due to completion of protocol. Maximal achieved blood pressure during the test of 126/58. Maximum achieved heart rate during the test 80. ELECTROCARDIOGRAM FINDINGS: The patient did not develop any new Lexiscan-induced ST or T-wave fernandez es from baseline abnormalities. No documented PVCs. SYMPTOMS: The patient had complaints of shortness breath during stress test that resolved during re covery. IMPRESSION: 1. No Lexiscan-induced ST or T-wave changes from baseline abnormalities that are diagnostic for car diac ischemia. 2. Complaints of shortness of breath during stress test that resolved during recovery. 3. No documented premature ventricular contractions during stress testing. 4. Report of nuclear images to follow in separate dictation. Dictated By: LUIS MIGUEL SIFUENTES/DAPHNE Conf#: [id number] DID#: [id number] CC: HALEY CROWELL;*EndCC*
--- NOTE | 2016-10-20 18:41 | RADRPT ---
Vent Rate: 65 bpm RR Interval: 0 msec MD Interval: 182 msec QRS Duration: 100 msec QT Interval: 402 msec QTC Interval: 418 msec P-R-T [place]: 62 - 73 - 71 degrees Normal sinus rhythm Minimal voltage criteria for LVH, may be normal variant Borderline ECG Electronically Signed By: Jens Mascorro [id number]
--- NOTE | 2016-10-20 18:41 | RADRPT ---
Vent Rate: 105 bpm RR Interval: 0 msec [place] Interval: 174 msec QRS Duration: 100 msec QT Interval: 358 msec QTC Interval: 473 msec P-R-T [place]: 64 - 72 - 47 degrees Sinus tachycardia Left ventricular hypertrophy with repolarization abnormality Abnormal ECG Electronically Signed By: Jens Mascorro [id number]
[2016-10-20] MEDS: ATORVASTATIN 20 MG TAB PO SCH (21:55)
[2016-10-21] VITALS (11 sets, daily range): BP systolic 125–177; BP diastolic 62–93; PULSE 63–83; RESP 18–20
[2016-10-21] MEDS: PANTOPRAZOLE (EC) 40 MG TAB PO SCH (06:14)
[2016-10-21] MEDS: ASPIRIN 81 MG TAB PO SCH (08:21)
[2016-10-21] MEDS: LOSARTAN 50 MG TAB PO SCH (08:22)
[2016-10-21] MEDS: TAMSULOSIN (SR) 0.4 MG CAP PO SCH (08:22)
[2016-10-21] MEDS: INSULIN ASPART [NOVOLOG] 3 ML PEN SC SCH ×7 (08:29→20:10)
[2016-10-21] MEDS: ENOXAPARIN 40 MG/0.4 ML SYG SC SCH (08:30)
[2016-10-21] MEDS: INSULIN GLARGINE [LANtus] 3 ML PEN SC SCH (08:30)
--- NOTE | 2016-10-21 15:17 | CONS ---
Date/Time of Note Date/Time of Note DATE: 10/21/16 TIME: 15:14 Assessment/Plan Assessment/Plan Additional Assessment/Plan Atypical chest pain with hypertension and dyslipidemia, diabetes stress test no ischemia Ok for discahrge with losartan and lipitor Avoid AV Debbie blockers due h/o marked bradycardia Consultation Date/Type/Reason Admit Date/Time Oct 18, 2016 at 22:42 Psychological: no complaints Social History Smoking Status: Never smoker Exam/Review of Systems Vital Signs Vitals Vital Signs Date Time Temp Pulse Resp B/P Pulse Ox O2 Delivery O2 Flow Rate FiO2 10/21/16 12:04 83 10/21/16 11:47 98.1 18 159/82 95 10/21/16 07:41 Nasal Cannula 2.0 Intake and Output 10/20/16 10/20/16 10/21/16 15:00 23:00 07:00 Intake Total 50 ml Balance 50 ml Exam Constitutional: alert, oriented Head: atraumatic, normocephalic Eyes: EOMI, nl conjunctiva Neck: non-tender, supple Respiratory: clear to auscultation Cardiovascular: regular rate and rhythm Gastrointestinal: nl liver, spleen, non-tender, soft Extremities: normal pulses Results Result Diagram: 10/20/16 0520 10/20/16 0520 Results 24 hrs Laboratory Tests Test 10/20/16 17:05 10/20/16 21:54 10/21/16 07:37 10/21/16 11:37 Bedside Glucose 311 H 156 194 233 H Medications Medications Current Medications Ondansetron HCl (Zofran Inj) 4 mg Q6H PRN IV NAUSEA AND/OR VOMITING; Start 10/19 at 09:30 Aspirin (Aspirin) 81 mg DAILY PO Last administered on 10/21/16t 08:21; Admin Dose 81 MG; Start 10/19/16 at 10:00 Nitroglycerin (Nitroglycerin (Sl Tab) 0.4 Mg) 1 tab Q5M PRN SL CHEST PAIN; Start 10/19/16 at 09:30 Acetaminophen (Tylenol Tab) 650 mg Q6H PRN PO PAIN LEVEL 1-3 OR FEVER; Start at 09:30 Morphine Sulfate (morphine) 2 mg Q4H PRN IV PAIN LEVEL 7-10; Start 10/19/16 at 09:30 Enoxaparin Sodium (Lovenox) 40 mg DAILY SC Last administered on 10/21/16 08:30 ; Admin Dose 40 MG; Start 10/19/16 at 10:00 Atorvastatin Calcium (Lipitor) 20 mg QHS PO Last administered on 10/20/16 21:55 ; Admin Dose 20 MG; Start 10/19/16 at 21:00 Losartan Potassium (Cozaar) 100 mg DAILY PO Last administered on 10/21/16 08:22 ; Admin Dose 100 MG; Start 10/19/16 at 10:00 Tamsulosin HCl (Flomax) 0.4 mg DAILY PO Last administered on 10/21/16 08:22; Admin Dose 0.4 MG; Start 10/19/16 at 10:00 Pantoprazole (Protonix Tab) 40 mg DAILY@06 PO Last administered on 10/21/16 06: 14; Admin Dose 40 MG; Start 10/19/16 at 10:00 Miscellaneous Information 1 ea NOTE XX ; Start 10/19/16 at 10:00 Glucose (Glutose) 15 gm Q15M PRN PO DECREASED GLUCOSE; Start 10/19/16 at 10:00 Glucose (Glutose) 22.5 gm Q15M PRN PO DECREASED GLUCOSE; Start 10/19/16 at 10:00 Dextrose (D50w Syringe) 25 ml Q15M PRN IV DECREASED GLUCOSE; Start 10/19/16 at 10:00 Dextrose (D50w Syringe) 50 ml Q15M PRN IV DECREASED GLUCOSE; Start 10/19/16 at 10:00 Glucagon (Glucagen) 1 mg Q15M PRN IM DECREASED GLUCOSE; Start 10/19/16 at 10:00 Glucose (Glutose) 15 gm Q15M PRN BUCCAL DECREASED GLUCOSE; Start 10/19/16 at 10: 00 Influenza Virus Vaccine (Fluzone) 0.5 ml ONCE ONCE IM* ; Start 10/22/16 at 09:00 ; Stop 10/22/16 at 09:01 Hydralazine HCl (Apresoline) 10 mg Q4H PRN IV prn for systolic above 160 Last administered on 10/20/16 05:47; Admin Dose 10 MG; Start 10/20/16 at 06:00 Insulin Glargine (Lantus) 30 unit QAM SC ; Start 10/22/16 at 09:00 SON NASCIMENTO M.D. Oct 21, 2016 15:17
--- NOTE | 2016-10-21 17:01 | PN ---
Date/Time of Note Date/Time of Note DATE: 10/21/16 TIME: 16:59 Assessment/Plan VTE Prophylaxis VTE Prophylaxis Intervention: SCD's Lines/Catheters [facility] Urinary Cath still in place: No Assessment/Plan Chief Complaint/Hosp Course Assessment and plan 1. Reported chest pain. Serial troponins negative thus far. Echocardiogram Noted with ejection fraction of 60% with stage I diastolic dysfunction 2. Hypertensive urgency. We'll continue on antihypertensives and adjust as needed. Stable at present 3. Type 2 diabetes. Follow up on A1c. We'll adjust basal and mealtime insulin. Of note patient family did report that patient is not completely compliant with insulin regimen at home. 4. History of dementia. Continue fall precautions 5. BPH. Patient to be resumed on his home medication 6. Reported bradycardia as low as the 30s. Suspect vasovagal. Stable at present. Follow-up with cardiogenic recommendations. GERD prophylaxis: PPI DVT prophylaxis: SCDs Disposition and plan: Denies any chest pain or shortness of breath. Discussed with appetizer packer, will monitor patient off of beta radha at this time due to reported bradycardia. Anticipate discharge in a.m. if no further bradycardia noted. Continue inpatient monitoring Discussed but of care with Dr. Ousllivan Problems: Subjective 24 Hr Interval Summary Free Text/Dictation No apparent distress noted at this time. Comfortable at present. Denies any chest pain. Exam/Review of Systems Vital Signs Vitals Vital Signs Date Time Temp Pulse Resp B/P Pulse Ox O2 Delivery O2 Flow Rate FiO2 10/21/16 16:27 98.3 80 18 134/62 95 10/21/16 07:41 Nasal Cannula 2.0 Intake and Output 10/20/16 10/20/16 10/21/16 15:00 23:00 07:00 Intake Total 50 ml Balance 50 ml Exam General: No acute signs or symptoms of distress Eyes: pupils equal round, Anicteric sclera Neck: Supple nontender, no JVD Cardiac: S1, S2 auscultated, regular rhythm and rate Pulmonary: No coarse rhonchi or breathing auscultated GI: Abdomen soft nontender nondistended, bowel sounds active Extremities: No edema bilateral lower extremities Skin: Clean dry and intact Neurologic: Alert to person place and time and situation Results Result Diagram: 10/20/1651910/20/16 0520 Results 24 hrs Laboratory Tests Test 2/3/17 17:05 10/20/16 21:54 10/21/16 07:37 10/21/16 11:37 Bedside Glucose 311 H 156 194 233 H Medications Medications Current Medications Ondansetron HCl (Zofran Inj) 4 mg Q6H PRN IV NAUSEA AND/OR VOMITING; Start 10/19 at 09:30 Aspirin (Aspirin) 81 mg DAILY PO Last administered on 10/21/16 08:21; Admin Dose 81 MG; Start 10/19/16 at 10:00 Nitroglycerin (Nitroglycerin (Sl Tab) 0.4 Mg) 1 tab Q5M PRN SL CHEST PAIN; Start 10/19/16 at 09:30 Acetaminophen (Tylenol Tab) 650 mg Q6H PRN PO PAIN LEVEL 1-3 OR FEVER; Start at 09:30 Morphine Sulfate (morphine) 2 mg Q4H PRN IV PAIN LEVEL 7-10; Start 10/19/16 at 09:30 Enoxaparin Sodium (Lovenox) 40 mg DAILY SC Last administered on 10/21/16 08:30 ; Admin Dose 40 MG; Start 10/19/16 at 10:00 Atorvastatin Calcium (Lipitor) 20 mg QHS PO Last administered on 10/20/16 21:55 ; Admin Dose 20 MG; Start 10/19/16 at 21:00 Losartan Potassium (Cozaar) 100 mg DAILY PO Last administered on 10/21/16 08:22 ; Admin Dose 100 MG; Start 10/19/16 at 10:00 Tamsulosin HCl (Flomax) 0.4 mg DAILY PO Last administered on 10/21/16 08:22; Admin Dose 0.4 MG; Start 10/19/16 at 10:00 Pantoprazole (Protonix Tab) 40 mg DAILY@06 PO Last administered on 10/21/16 06: 14; Admin Dose 40 MG; Start 10/19/16 at 10:00 Miscellaneous Information 1 ea NOTE XX ; Start 10/19/16 at 10:00 Glucose (Glutose) 15 gm Q15M PRN PO DECREASED GLUCOSE; Start 10/19/16 at 10:00 Glucose (Glutose) 22.5 gm Q15M PRN PO DECREASED GLUCOSE; Start 10/19/16 at 10:00 Dextrose (D50w Syringe) 25 ml Q15M PRN IV DECREASED GLUCOSE; Start 10/19/16 at 10:00 Dextrose (D50w Syringe) 50 ml Q15M PRN IV DECREASED GLUCOSE; Start 10/19/16 at 10:00 Glucagon (Glucagen) 1 mg Q15M PRN IM DECREASED GLUCOSE; Start 10/19/16 at 10:00 Glucose (Glutose) 15 gm Q15M PRN BUCCAL DECREASED GLUCOSE; Start 10/19/16 at 10: 00 Influenza Virus Vaccine (Fluzone) 0.5 ml ONCE ONCE IM* ; Start 10/22/16 at 09:00 ; Stop 10/22/16 at 09:01 Hydralazine HCl (Apresoline) 10 mg Q4H PRN IV prn for systolic above 160 Last administered on 10/20/16t 05:47; Admin Dose 10 MG; Start 10/20/16 at 06:00 Insulin Glargine (Lantus) 30 unit QAM SC ; Start 10/22/16 at 09:00 WOOD BRUCE Oct 21, 2016 17:01
[2016-10-21] MEDS: ATORVASTATIN 20 MG TAB PO SCH (20:04)
[2016-10-22] VITALS (9 sets, daily range): BP systolic 123–188; BP diastolic 58–82; PULSE 60–85; RESP 18–20
[2016-10-22] MEDS: hydrALAzine 20 MG INJ IV PRN (03:50)
[2016-10-22] MEDS: PANTOPRAZOLE (EC) 40 MG TAB PO SCH (06:02)
[2016-10-22] MEDS: INSULIN ASPART [NOVOLOG] 3 ML PEN SC SCH ×4 (08:00→12:47)
[2016-10-22] MEDS: ASPIRIN 81 MG TAB PO SCH (08:45)
[2016-10-22] MEDS: LOSARTAN 50 MG TAB PO SCH (08:46)
[2016-10-22] MEDS: TAMSULOSIN (SR) 0.4 MG CAP PO SCH (08:46)
[2016-10-22] MEDS ORDERED: INFLUENZA VIRUS VACCINE 0.5 ML (DISPENSING) IM* ONE (09:00)
[2016-10-22] MEDS ORDERED: INSULIN GLARGINE [LANtus] 3 ML PEN SC SCH (09:00)
[2016-10-22] MEDS: ENOXAPARIN 40 MG/0.4 ML SYG SC SCH (09:02)
[2016-10-22] MEDS ORDERED: LOSA50TA2 PO (09:35)
[2016-10-22] MEDS ORDERED: ASPI81TA3 PO (09:35)
[2016-10-22] MEDS ORDERED: LANT3I SC (09:35)
[2016-10-22] MEDS ORDERED: ATOR20TA65 PO (09:35)
[2016-10-22] MEDS ORDERED: TAMS-14 PO (09:35)
--- NOTE | 2016-10-22 09:37 | PDOCDIS ---
Discharge Instructions DIAGNOSIS Discharge Diagnosis: 1. Chest pain 2. Bradycardia 3. Diabetes 4. Dyslipidemia CONDITION Patient Condition: Stable HOME CARE INSTRUCTIONS: Special Diet: 1800 Silverio Diet FOLLOW UP/APPOINTMENTS Appointments 1. Follow up with Dr. Jim Green in one week 2. Follow up with your primary care provider in 1-2 weeks OTHER ORDERS: Other Orders: 1. Call 911 for worsening Chest pain or shortness of breath WOOD BRUCE Oct 22, 2016 09:37
--- NOTE | 2016-10-22 13:18 | DS ---
Date/Time of Note Date/Time of Note DATE: 10/22/16 TIME: 13:14 Discharge Summary Admission/Discharge Info Admit Date/Time Oct 18, 2016 at 22:42 Discharge Date/Time Final Diagnosis 1. Reported chest pain. 2. Hypertensive urgency. 3. Type 2 diabetes. 4. History of dementia. 5. BPH. 6. Bradycardia Patient Condition: Stable Consults 1. Dr. Jim Green Hospital Course This is an 86-year-old male with history of hypertension, type 2 diabetes, dementia, BPH, GERD, who came to [facility] due to reports of lightheadedness/dizziness. He also did report having some chest discomfort and chest pain with shortness of breath. On admission to the hospital he was noted with a blood pressure of 213/86. Patient was optimized with his cardio vascular medications and place on antihypertensives. He did have good response. Due to patient's comorbidities he was also seen by cardiology as. He did undergo Lexiscan stress test which was negative for any ischemia. Additionally the patient also did have echocardiogram that did show him to have an ejection fraction of 60% with stage I diastolic dysfunction. Was optimized with his cardiovascular medications. Patient did have episode of sinus bradycardia as low as 30s. After review patient did have his beta radha medication discontinued per editor continuity and script recommendations. During his course of stay did improve. He was otherwise optimized medically. He was continued on insulin for his diabetes. He was also placed on fall precautions for his history of dementia. We did resume his home Flomax for his BPH. His bradycardia did stabilize after beta radha was removed. The plan of care was discussed with the patient and family and family did verbalize understanding. On the day of discharge patient was in stable condition Discussed but of care with Dr. Osullivan Discharge process time is 40 minutes Disposition: Home with home health services. Home Meds Active Scripts Tamsulosin Hcl* (Flomax*) 0.4 Mg Cap.er.24h, 0.4 MG PO DAILY for 30 Days, CAP Prov:WOOD BRUCE 10/22/16 Losartan Potassium* (Cozaar*) 50 Mg Tablet, 100 MG PO DAILY for 30 Days, TAB Prov:WOOD BRUCE 10/22/16 Insulin Glargine* (Lantus*) 100 Unit/Ml Soln, 30 UNIT SC QAM for 30 Days Prov:WOOD BRUCE 10/22/16 Atorvastatin Calcium (Atorvastatin Calcium) 20 Mg Tablet, 20 MG PO QHS for 30 Days, TAB Prov:WOOD BRUCE 10/22/16 Aspirin (Aspirin) 81 Mg Chew, 81 MG PO DAILY for 30 Days, TAB Prov:WOOD BRUCE 10/22/16 Reported Medications Omeprazole* (Omeprazole*) 40 Mg Capsule.dr, 40 MG PO DAILY, #30 CAP 10/18/16 Discontinued Reported Medications Tamsulosin Hcl* (Tamsulosin Hcl*) 0.4 Mg Cap.er.24h, 0.4 MG PO DAILY, CAP 10/18/16 Losartan Potassium* (Losartan Potassium*) 100 Mg Tablet, 100 MG PO DAILY, TAB 10/18/16 Atorvastatin Calcium* (Atorvastatin Calcium*) 20 Mg Tablet, 20 MG PO QHS, #30 TAB 11/08/15 Insulin Glargine* (Lantus*) 100 Unit/Ml Soln, 15 UNIT SC HS, EA 11/03/14 Glimepiride* (Glimepiride*) 2 Mg Tablet, 2 MG PO QAM, TAB 11/03/14 Ibuprofen* (Advil*) 200 Mg Capsule, 200 MG PO Q6H Y for PAIN, CAP 11/08/15 Losartan Potassium* (Losartan Potassium*) 50 Mg Tablet, 50 MG PO DAILY, TAB 11/08/15 Discontinued Scripts Ciprofloxacin Hcl* (Ciprofloxacin Hcl*) 500 Mg Tablet, 500 MG PO BID for 10 Days , TAB Prov:IDRIS ZHU MD 11/08/15 Follow-up Plan CONDITION Patient Condition: Stable HOME CARE INSTRUCTIONS: Special Diet: 1800 Silverio Diet FOLLOW UP/APPOINTMENTS Appointments 1. Follow up with Dr. Jim Green in one week 2. Follow up with your primary care provider in 1-2 weeks OTHER ORDERS: Other Orders: 1. Call 911 for worsening Chest pain or shortness of breath Pending Labs Laboratory Tests Test 10/21/16 17:14 10/21/16 20:09 10/22/16 07:59 10/22/16 12:41 Bedside Glucose 101mg/dL (70-220) 115mg/dL (70-220) 138mg/dL (70-220) 176mg/dL (70-220) WOOD BRUCE Oct 22, 2016 13:18
== END 2016-10-22 15:00 | disposition home health service (06) | DRG 305 ==
LOC: E/R 19:03 → TEL 22:42 → MS4 10-19 23:39
PROVIDERS: ADMIT Internal Medicine; ATTEND Internal Medicine
DX: I16.0 Hypertensive urgency (principal); F03.90 Unspecified dementia, unspecified severity, without behavioral disturbance, psychotic disturbance, mood disturbance, and anxiety; R00.1 Bradycardia, unspecified; E11.9 Type 2 diabetes mellitus without complications; N40.0 Benign prostatic hyperplasia without lower urinary tract symptoms; K21.9 Gastro-esophageal reflux disease without esophagitis; Z79.4 Long term (current) use of insulin; Z79.82 Long term (current) use of aspirin
CPT/HCPCS: 36415; 71010; 78452; 80048; 80053; 80061; 82550; 82553; 82962; 83036; 83735; 84443; 84484; 85025; 85610; 85730; 90686; 93005; 93017; 93306; 93880; 96372; 96374; A9500; A9505; J0360; J1650; J1815; J2405; J2785; J3475

== ENCOUNTER 2017-09-04 11:25 | Observation (INO) | payer MEDICARE, OTHER ==
[~2017-09-04] VITALS: Ht 170.2 cm; Wt 63.0 kg
[~2017-09-04 11:25] MED LIST changes: +ASPI81TA3 PO; -ATOR20TA38 PO; +ATOR20TA65 PO; -CIPR500T4 PO; -GLIM2TAB PO; -IBUP200C11 PO; +LOSA50TA2 PO; -LOSA50TA6 PO; +OMEP40CA6 PO; +TAMS-14 PO
[2017-09-04] MEDS ORDERED: SOD CHLORIDE 0.9% 1,000 ML IV STA (11:53)
[2017-09-04] MEDS ORDERED: ASPIRIN (EC) 325 MG TAB PO ONE (12:00)
[2017-09-04 12:17] LABS: BASOPHIL # 0.1 10^3/ul (0.0-0.1); BASOPHILS % 1.2 % (0.0-2.0); EOSINOPHILS # 0.1 10^3/ul (0.0-0.5); EOSINOPHILS % 2.4 % (0.0-7.0); HEMATOCRIT 34.5 % (42.0-52.0); LYMPHOCYTES # 2.2 10^3/ul (0.8-2.9); LYMPHOCYTES % 36.6 % (15.0-51.0); MEAN CORPUSCULAR HEMOGLOBIN 29.8 pg (29.0-33.0); MEAN CORPUSCULAR HGB CONC 34.8 g/dl (32.0-37.0); MEAN CORPUSCULAR VOLUME 85.6 fl (82.0-101.0); MEAN PLATELET VOLUME 9.4 fl (7.4-10.4); MONOCYTE # 0.6 10^3/ul (0.3-0.9); MONOCYTES % 9.7 % (0.0-11.0); NEUTROPHIL # 2.9 10^3/ul (1.6-7.5); NEUTROPHILS % 49.9 % (39.0-77.0); PLATELET COUNT 233 10^3/UL (140-415); RED BLOOD COUNT 4.03 10^6/ul (4.70-6.10); RED CELL DISTRIBUTION WIDTH 12.8 % (11.5-14.5); WHITE BLOOD COUNT 5.9 10^3/ul (4.8-10.8)
--- NOTE | 2017-09-04 12:41 | RADRPT ---
PROCEDURE: XR Chest. CLINICAL INDICATION: Patient experiencing Syncope. TECHNIQUE: Single frontal view of the chest was obtained COMPARISON: Chest radiograph dated October 18, 2016. FINDINGS: The heart and mediastinum are within normal limits. Aortic calcifications are present. There is mild pulmonary vascular congestion. No focal consolidations, pleural effusions, or pneumoth orax. Degenerative changes of the spine and shoulder joints are present. IMPRESSION: 1. Mild pulmonary vascular congestion with no focal consolidations. RPTAT:AAJJ Physician [place] Date Time Electronically viewed and signed by Krystal Mcmanus Physician on 09/04/2017 12:40 QL/
[2017-09-04 12:42] LABS: INR 0.95; PARTIAL THROMBOPLASTIN TIME 25.8 Sec (25.0-35.0); PROTIME 12.8 Sec (11.9-14.9)
[2017-09-04 12:48] LABS: ANION GAP 13 (8-16); BLOOD UREA NITROGEN 31 mg/dl (7-20); CALCIUM 9.4 mg/dl (8.4-10.2); CARBON DIOXIDE 27 mmol/L (21-31); CHLORIDE 106 mmol/L (97-110); CREATININE 0.79 mg/dl (0.61-1.24); GLUCOSE 152 mg/dl (70-220); POTASSIUM 3.9 mmol/L (3.5-5.1); SODIUM 142 mmol/L (135-144)
--- NOTE | 2017-09-04 12:55 | RADRPT ---
PROCEDURE: CT Brain without contrast. CLINICAL INDICATION: Syncope TECHNIQUE: A CT of the brain was performed on a [employer] CT scanner utilizing axial imaging f rom the skull base through the vertex without IV contrast. Multiplanar reformatted images were made . Images were reviewed on a PACS workstation. The CTDIvol is 44.11 mGy and the DLP is 720.23 mGycm . DICOM images are available. One of the following 3 dose reduction techniques were used during this CT examination: 1) Automated exposure control 2) Adjustment of the mA +/- kV according to patient size or 3) Use of iterative reconstruction technique COMPARISON: CT brain 11/03/2014 FINDINGS: There is no intracranial hemorrhage, mass effect, or midline shift. No extra-axial fluid collection is seen. The ventricles and sulci are age appropriate. Mild diffuse volume loss is present. The lef t middle cranial fossa arachnoid cyst is noted unchanged from prior study and measuring approximatel y 2.3 cm AP by 2.8 cm in transverse dimensions. Decreased attenuation is present in the bilateral maher bcortical white matter, centrum semiovale and periventricular white matter compatible with mild clock repair technician gio microvascular ischemic disease. A focus of decreased attenuation is noted in the left basal gang ronak compatible with a chronic left basal ganglia lacunar infarct. Mild vascular calcifications are p resent of the intracranial internal carotid arteries. Had a visualized scalp and calvarium are normal. The bilateral orbits demonstrate sequela of prior l ens replacement. The bilateral paranasal sinuses, mastoid air cells and middle ear cavities are miles r. IMPRESSION: 1. No evidence of acute intracranial hemorrhage, infarcts, or acute intracranial pathology. 2. Mild chronic microvascular ischemic disease and diffuse volume loss. 3. Chronic left basal ganglia lacunar infarct 4. Stable left middle cranial fossa arachnoid cyst. 5. Mild atherosclerotic vascular disease RPTAT: HDC .Emilie Pastrana MD, Date Time Electronically viewed and signed by .Emilie Pastrana MD, on 09/04/2017 12:55 .C/
[2017-09-04 13:01] LABS: TROPONIN-I < 0.012 ng/ml (0.00-0.12)
[2017-09-04] MEDS ORDERED: ASPI-664 PO (13:31)
[2017-09-04] MEDS ORDERED: RANI150T5 PO (13:32)
[2017-09-04] MEDS ORDERED: NOVO3I SC (13:32)
--- NOTE | 2017-09-04 13:45 | ERD ---
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 The patient was with his son in the car and they were talking in driving along with no abnormalities with the patient's behavior. [place] pulled over to get some gas and he told his father he was going to be back in his second. The patient was left in the car while the son pump the gas. The son got back into the car and started driving off after a minute or 2 he looked over his father and saw him slumped over with drool coming out of his mouth. He thought the patient was asleep but the drooling got worse so he was concerned and pulled over. He said he try to wake up his father but he would not respond. He said he was grunting and groaning. The patient said he slowly started opening his eyes and was mumbling his verbiage. The patient slowly woke up and is awake and alert at this time. The patient says that he remembers feeling very nauseated while his son was starting to pump the gas but does remember anything else after that point. The patient denied any chest pain shortness of breath or recent illness. Patient only complains of a mild frontal headache at this time. Denies any focal neurological complaints ROS All systems reviewed and are negative except as per history of present illness. Medications Home Meds Active Scripts Losartan Potassium* (Cozaar*) 50 Mg Tablet, 100 MG PO DAILY for 30 Days, TAB Prov:WOOD BRUCE 10/22/16 Atorvastatin Calcium (Atorvastatin Calcium) 20 Mg Tablet, 20 MG PO QHS for 30 Days, TAB Prov:WOOD BRUCE 10/22/16 Reported Medications Insulin Aspart* (Novolog Insulin Pen*) 100 Unit/Ml Soln, 10 UNITS SC .SLIDING SCALE AC, EA 09/04/17 Ranitidine Hcl* (Ranitidine Hcl*) 150 Mg Tablet, 150 MG PO HS, #30 TAB 09/04/17 Aspirin* (Aspirin* (EC)) 81 Mg Tablet.dr, 81 MG PO DAILY, TAB 09/04/17 Omeprazole* (Omeprazole*) 40 Mg Capsule.dr, 40 MG PO DAILY, #30 CAP 10/18/16 Discontinued Scripts Tamsulosin Hcl* (Flomax*) 0.4 Mg Cap.er.24h, 0.4 MG PO DAILY for 30 Days, CAP Prov:WOOD BRUCE 10/22/16 Insulin Glargine* (Lantus*) 100 Unit/Ml Soln, 30 UNIT SC QAM for 30 Days Prov:WOOD BRUCE 10/22/16 Aspirin (Aspirin) 81 Mg Chew, 81 MG PO DAILY for 30 Days, TAB Prov:WOOD BRUCE 10/22/16 Allergies Allergies: Coded Allergies: Penicillins (Verified Allergy, Unknown, 10/18/16) PMhx/Soc History of Surgery: Yes (HIP SURGERY) Anesthesia Reaction: No Hx Neurological Disorder: No Hx Respiratory Disorders: No Hx Cardiac Disorders: Yes (HTN, HLD) Hx Psychiatric Problems: No Hx Miscellaneous Medical Probl: Yes (DM) Hx Alcohol Use: No Hx Substance Use: No Hx Tobacco Use: No Smoking Status: Never smoker FmHx Family History: No coronary disease Physical Exam Vitals Vital Signs Date Time Temp Pulse Resp B/P Pulse Ox O2 Delivery O2 Flow Rate FiO2 09/04/17 11:48 97.5 66 16 141/49 94 Room Air 09/04/17 11:28 98.1 59 18 146/65 96 Physical Exam Const: Well-developed, well-nourished Head: Atraumatic, normocephalic Eyes: Normal Conjunctiva, PERRLA, EOMI, normal sclera, no nystagmus ENT: Normal External Ears, Nose and Mouth, moist mucus membranes. Neck: Full range of motion. No meningismus, no lymphadenopathy. Resp: Clear to auscultation bilaterally, no wheezing, rhonchi, rales Cardio: Regular rate and rhythm, no murmurs, S1 S2 present Abd: Soft, non tender x 4, non distended. Normal bowel sounds, no guarding or rebound, no pulsitile abdominal masses or bruits Skin: No petechiae or rashes, no ecchymosis , no maculopapular rash Back: No midline or flank tenderness Ext: No cyanosis, or edema, FROM x 4, normal inspection, neurovascularly intact x 4 Neur: Awake and alert, STR 5/5 x 4, sensation intact x 4, no focal findings, cerebellum intact Psych: Normal Mood and Affect Result Diagram: 09/04/17 1145 09/04/17 1145 Results 24 hrs Laboratory Tests Test 09/04/17 11:45 09/04/17 12:14 White Blood Count 5.910^3/ul Red Blood Count 4.0310^6/ul Hemoglobin 12.0g/dl Hematocrit 34.5% Mean Corpuscular Volume 85.6fl Mean Corpuscular Hemoglobin 29.8pg Mean Corpuscular Hemoglobin Concent 34.8g/dl Red Cell Distribution Width 12.8% Platelet Count 61371^3/UL Mean Platelet Volume 9.4fl Neutrophils % 49.9% Lymphocytes % 36.6% Monocytes % 9.7% Eosinophils % 2.4% Basophils % 1.2% Nucleated Red Blood Cells % 0.0/100WBC Neutrophils # 2.910^3/ul Lymphocytes # 2.210^3/ul Monocytes # 0.610^3/ul Eosinophils # 0.110^3/ul Basophils # 0.110^3/ul Nucleated Red Blood Cells # 0.010^3/ul Prothrombin Time 12.8Sec Prothrombin Time Ratio 1.0 INR International Normalized Ratio 0.95 Activated Partial Thromboplast Time 25.8Sec Sodium Level 142mmol/L Potassium Level 3.9mmol/L Chloride Level 106mmol/L Carbon Dioxide Level 27mmol/L Anion Gap 13 Blood Urea Nitrogen 31mg/dl Creatinine 0.79mg/dl Glucose Level 152mg/dl Calcium Level 9.4mg/dl Troponin I < 0.012ng/ml Bedside Glucose 162mg/dL Current Medications Medications (Trade) Dose Ordered Sig/Tripp Route PRN Reason Start Time Stop Time Status Last Admin Dose Admin Sodium Chloride (NS) 1,000 ml @ 1,000 mls/hr Q1H STAT IV 09/04/17 11:53 09/04/17 12:52 DC 09/04/17 12:51 Aspirin (Ecotrin) 325 mg ONCE ONCE PO 09/04/17 12:00 09/04/17 12:01 DC Procedures/MDM EKG: Rate/Rhythm: Sinus bradycardia heart rate 58 with premature atrial complexes QRS, ST, QT: NORMAL ND, QRS, QT] Impression: [Abnormal EKG PROCEDURE: CT Brain without contrast. CLINICAL INDICATION: Syncope TECHNIQUE: A CT of the brain was performed on a [employer] CT scanner utilizing axial imaging from the skull base through the vertex without IV contrast. Multiplanar reformatted images were made. Images were reviewed on a PACS workstation. The CTDIvol is 44.11 mGy and the DLP is 720.23 mGycm. DICOM images are available. One of the following 3 dose reduction techniques were used during this CT examination: 1) Automated exposure control 2) Adjustment of the mA +/- kV according to patient size or 3) Use of iterative reconstruction technique COMPARISON: CT brain 11/03/2014 FINDINGS: There is no intracranial hemorrhage, mass effect, or midline shift. No extra- axial fluid collection is seen. The ventricles and sulci are age appropriate. Mild diffuse volume loss is present. The left middle cranial fossa arachnoid cyst is noted unchanged from prior study and measuring approximately 2.3 cm AP by 2.8 cm in transverse dimensions. Decreased attenuation is present in the bilateral subcortical white matter, centrum semiovale and periventricular white matter compatible with mild chronic microvascular ischemic disease. A focus of decreased attenuation is noted in the left basal ganglia compatible with a chronic left basal ganglia lacunar infarct. Mild vascular calcifications are present of the intracranial internal carotid arteries. Had a visualized scalp and calvarium are normal. The bilateral orbits demonstrate sequela of prior lens replacement. The bilateral paranasal sinuses, mastoid air cells and middle ear cavities are clear. IMPRESSION: 1. No evidence of acute intracranial hemorrhage, infarcts, or acute intracranial pathology. 2. Mild chronic microvascular ischemic disease and diffuse volume loss. 3. Chronic left basal ganglia lacunar infarct 4. Stable left middle cranial fossa arachnoid cyst. 5. Mild atherosclerotic vascular disease RPTAT: HD .Emilie Pastrana MD, Date Time Electronically viewed and signed by .Emilie Pastrana MD, on 09/04/2017 12: 55 .C/ CC: STEFANY COKER DO PROCEDURE: XR Chest. CLINICAL INDICATION: Patient experiencing Syncope. TECHNIQUE: Single frontal view of the chest was obtained COMPARISON: Chest radiograph dated October 18, 2016. FINDINGS: The heart and mediastinum are within normal limits. Aortic calcifications are present. There is mild pulmonary vascular congestion. No focal consolidations, pleural effusions, or pneumothorax. Degenerative changes of the spine and shoulder joints are present. IMPRESSION: 1. Mild pulmonary vascular congestion with no focal consolidations. RPTAT:AAJJ Krystal Mcmanus Physician Date Time Electronically viewed and signed by Krystal Mcmanus Physician on 09/04/2017 12:40 QL/ CC: STEFANY COKER DO Patient does not show any evidence of any intracranial pathology. Blood work is relatively unremarkable. Patient may have had a small TIA, arrhythmia, low sugar or low blood pressure spell or other. We will admit to the hospital for syncopal workup Patient's syncopal symptoms are unstable at this time and require inpatient workup. No evidence of PE or dissection at this time but occult ischemia or fatal dysrhythmia cannot be ruled out. Departure Diagnosis: Primary Impression: Syncope Syncope type: unspecified Qualified Code: R55 - Syncope, unspecified syncope type Condition: Stable STEFANY COKER DO Sep 04, 2017 13:45
[2017-09-04] MEDS ORDERED: SOD CHLORIDE 0.9% 1,000 ML IV SCH (13:47)
[2017-09-04] MEDS ORDERED: ACETAMINOPHEN 325 MG TAB PO PRN ×2 (14:00→15:30)
[2017-09-04] MEDS ORDERED: ONDANSETRON 4 MG INJ IV PRN ×2 (14:00→15:30)
[2017-09-04 14:19] VITALS: TEMP 97.7
--- NOTE | 2017-09-04 15:27 | HP ---
Date/Time of Note Date/Time of Note DATE: 09/04/17 TIME: 15:18 Assessment/Plan VTE Prophylaxis VTE Prophylaxis Intervention: LMWH Assessment/Plan Chief Complaint/Hosp Course 87-year-old male with past medical history of hypertension, who was brought to the emergency room for evaluation of feeling nauseated with transient loss of consciousness while he was sitting inside a closed car. 1. Syncope, likely situational syncope secondary to being in a closed car. Negative CT brain, EKG negative for acute cardiac ischemic events. Status: Acute Comment: Symptoms completely resolved. -Admit as inpatient. Rule out other cardiac or neurological etiologies. -Orthostatic vital signs, 2D echocardiogram to follow and carotid ultrasound. -Aspirin to prevent any cardiac ischemic events. -IV hydration. 2. Essential hypertension. Status: Chronic Comment: Stable -Resume home medications. Avoid AV debbie blocking agents or beta blockers. 3. Dyslipidemia Status: Chronic Comment: Stable -Resume statin and obtain a lipid panel 4. Type 2 diabetes. Status: Chronic Comment: Stable blood glucose level -We will place patient on Accu-Cheks/ISS/pre-meal/Lantus insulin. -Obtain A1c -Carb controlled diet 5. GERD Status: Chronic Comment: Stable -Resume PPI DVT prophylaxis: Lovenox Beauty prophylaxis: PPI Rest of the management depend on hospital course. Patient was seen in collaboration with . Approximately 60 minutes was spent on this history and physical. Problems: HPI/ROS Admit Date/Time Admit Date/Time Hx of Present Illness This is a 87-year-old male with a past medical history of hypertension, dyslipidemia, GERD, type 2 diabetes, who was brought to the emergency room after patient was found in a closed car slumped over with transient loss of consciousness. This happened while patient's son is fueling his car with his father sitting inside the car. Patient's symptoms were resolved prior to arrival to emergency room and he was not able to remember anything else other than feeling nauseated and dry heaving while his son was fueling his car. Initial labs unremarkable with a negative troponin. Stable glucose trends. CT brain without any acute changes. Chest x-ray with mild pulmonary vascular congestion with no focal consolidations. Patient was given 1 L normal saline with 325 mg aspirin in the emergency room and was admitted for syncopal workup. Looking back into the medical records, patient was admitted and [facility] in October 2016 when he had a negative workup including Lexiscan stress test for cardiac ischemic events. At my encounter with the patient, he is completely back to his baseline. Denied chest pain, palpitation, shortness of breath, nausea, vomiting, abdominal pain, dizziness, lightheadedness, numbness, tingling or other constitutional symptoms. There is no focal deficit. ROS A 12 point review of system was assessed and is negative other than what is mentioned in the HPI. PMH/Family/Social Past Medical History See HPI Past Surgical History See HPI Social History Patient denied any history of alcohol, smoking or illicit drug use. Smoking Status: Never smoker Exam/Review of Systems Vital Signs Vitals Vital Signs Date Time Temp Pulse Resp B/P Pulse Ox O2 Delivery O2 Flow Rate FiO2 09/04/17 14:19 97.7 79 23 166/52 95 Room Air Exam Exam General: Elderly male, not in any acute distress . HEENT: Normocephalic, Atraumatic, No laceration or hematoma; Eyes: PEERL, Conjunctiva clear, Anicteric sclera Neck: Supple without any lymphadenopathy, nontender, no JVD, no carotid bruits, trachea midline, no thyromegaly Cardiac: S1, S2 auscultated, regular rhythm and rate, no mumurs or gallop Pulmonary: Normal respiratory effort. Chest clear to auscultation bilaterally, no adventitious breath sounds GI: Abdomen normal to inspection. Soft, non tender, non- distended, no masses, no rebound tenderness or guarding. Bowel sounds active on all four quadrants Genitourinary: Deferred Extremities: No cyanosis, clubbing, or edema. Pulses [2+] bilaterally. Full ROM on all four extremities. No focal weakness appreciated. Neurologic: Alert to person, place, time, and situation. Affect appropriate, intact sensation. Skin: Clean,dry, and intact. No ecchymosis, no rashes, or lesions Labs Result Diagram: 09/04/17 1145 09/04/17 1145 Medications Medications Current Medications Sodium Chloride (NS) 1,000 ml @ 80 mls/hr [id number] IV ; Start 09/04/17 at 13:47 ; Stop 09/05/17 at 02:16 CARMELA SALINAS NP Sep 04, 2017 15:27
[2017-09-04] MEDS ORDERED: NACL 0.9% 3 ML SYG IV SCH (15:30)
[2017-09-04 16:00] VITALS: PULSE 70
[2017-09-04 16:12] LABS: ADD UMIC YES; UR ASCORBIC ACID NEGATIVE (NEGATIVE); UR BILIRUBIN (Dip) NEGATIVE (NEGATIVE); UR BLOOD (Dip) NEGATIVE (NEGATIVE); UR CLARITY CLEAR (CLEAR); UR COLOR YELLOW (YELLOW); UR GLUCOSE (Dip) 3+ mg/dL (NEGATIVE); UR KETONES (Dip) TRACE mg/dL (NEGATIVE); UR LEUKOCYTE ESTERASE (Dip) NEGATIVE Leu/ul (NEGATIVE); UR NITRITE (Dip) NEGATIVE (NEGATIVE); UR RBC 1 /HPF (0-5); UR SPECIFIC GRAVITY (Dip) 1.012 (1.003-1.030); UR TOTAL PROTEIN (Dip) 1+ mg/dl (NEGATIVE); UR UROBILINOGEN (Dip) NEGATIVE (NEGATIVE)
[2017-09-04] MEDS ORDERED: DEXTROSE 50% 50 ML SYRINGE IV PRN ×2 (16:30)
[2017-09-04] MEDS ORDERED: GLUCAGON 1 MG INJ IM PRN (16:30)
[2017-09-04] MEDS ORDERED: GLUCOSE GEL 15 GRAM TUBE PO PRN ×2 (16:30)
[2017-09-04] MEDS ORDERED: GLUCOSE GEL 15 GRAM TUBE BUCCAL PRN (16:30)
--- NOTE | 2017-09-04 16:37 | RADRPT ---
PROCEDURE: Carotid ultrasound CLINICAL INDICATION: Syncope, carotid bruits TECHNIQUE: Padilla scale, color doppler, spectral doppler ultrasound of the bilateral carotid and felicia tebral arteries. This study indirectly references the measurement of the distal ICA diameter as the denominator for s tenosis measurement. Validated velocity measurements with angiographic measurements, velocity criter ia are extrapolated from diameter data as defined by: *Cartoid artery stenosis: padilla-scale and Doppl er US diagnosis. Society of Radiologists in Ultrasound Consensus Conference. Radiology 2003; 229: 34 0-346. SRU Consensus Conference Criteria for the Diagnosis of Carotid Artery Stenosis* Degree of Stenosis, % ICA PSV, cm/sec Plaque Estimate, % ICA/CCA PSV Ratio Normal <125 None <2.0 <50 <125 <50 <2.0 50 69 125-230 >50 2.0-4.0 >70 but less than near occlusion >230 >50 <4.0 Near occlusion High, low, or undetectable Visible Variable Total occlusion Undetectable Visible, no detectable lumen Not applicable COMPARISON: US NECK 10/19/2016 FINDINGS: Location Right CCA74 - 98 cm/sec Prox ICA 72 cm/sec Mid ICA77 cm/sec Dist ICA65 cm/sec PYU799 cm/sec ICA/CCA1.0 Left CCA78 - 99 cm/sec Prox ICA 75 cm/sec Mid ICA66 cm/sec Dist ICA52 cm/sec ECA97 cm/sec ICA/CCA1.0 Plaque burden: Plaques are present within both internal carotid arteries without evidence of flow ac celeration to suggest a hemodynamically significant stenosis; less than 50% stenosis bilaterally. Antegrade flow is seen within the vertebral arteries bilaterally. IMPRESSION: Plaques are present within both internal carotid arteries without evidence of flow acceleration to s uggest a hemodynamically significant stenosis; less than 50% stenosis bilaterally. Unchanged from th e previous examination. RPTAT: AADD .Kodi Munoz MD, Date Time Electronically viewed and signed by .Kodi Munoz MD, on 09/04/2017 16:36 .B/
[2017-09-04 17:54] LABS: CREATINE KINASE 37 IU/L (23-200)
[2017-09-04 18:11] LABS: CK-MB 1.19 ng/ml (0.0-2.4); TROPONIN-I < 0.012 ng/ml (0.00-0.12)
[2017-09-04] MEDS: INSULIN ASPART [NOVOLOG] 3 ML PEN SC SCH (18:18)
[2017-09-04 20:00] VITALS: PULSE 73; Ht 170.2 cm; Wt 63.0 kg
[2017-09-04 20:23] VITALS: BP 190/76; PULSE 67; RESP 18
[2017-09-04] MEDS ORDERED: hydrALAzine 20 MG INJ IV PRN (21:00)
[2017-09-04] MEDS ORDERED: ATORVASTATIN 20 MG TAB PO SCH (21:00)
[2017-09-04 21:55] VITALS: BP 171/73; PULSE 73; RESP 18
[2017-09-04] MEDS: SOD CHLORIDE 0.9% 1,000 ML IV SCH (22:59)
[2017-09-04 23:30] VITALS: BP_SYST 154; BP_SYST 171; BP_SYST 180; BP_DIAS 65; PULSE 72; RESP 18
[2017-09-05] VITALS (7 sets, daily range): BP systolic 107–167; BP diastolic 56–69; PULSE 70–98; RESP 18–20
[2017-09-05 00:14] LABS: TROPONIN-I 0.012 ng/ml (0.00-0.12)
[2017-09-05 00:29] LABS: CK-MB 1.16 ng/ml (0.0-2.4)
[2017-09-05] MEDS ORDERED: ZOLPIDEM 5 MG TAB PO PRN (00:30)
[2017-09-05] MEDS ORDERED: ACCU-CHEK XX SCH (02:00)
[2017-09-05] MEDS ORDERED: PANTOPRAZOLE (EC) 40 MG TAB PO SCH (06:00)
[2017-09-05] MEDS: SOD CHLORIDE 0.9% 1,000 ML IV SCH (07:20)
[2017-09-05] MEDS ORDERED: INSULIN ASPART [NOVOLOG] 3 ML PEN SC SCH ×2 (07:35→11:50)
[2017-09-05] MEDS ORDERED: INSULIN GLARGINE [LANtus] 3 ML PEN SC SCH ×2 (08:00→11:30)
[2017-09-05] MEDS: INSULIN ASPART [NOVOLOG] 3 ML PEN SC SCH (08:26)
[2017-09-05] MEDS ORDERED: ENOXAPARIN 40 MG/0.4 ML SYG SC SCH (09:00)
[2017-09-05] MEDS ORDERED: LOSARTAN 50 MG TAB PO SCH (09:00)
[2017-09-05] MEDS ORDERED: ASPIRIN (EC) 81 MG TAB PO SCH (09:00)
[2017-09-05 09:16] LABS: BASOPHIL # 0.1 10^3/ul (0.0-0.1); BASOPHILS % 1.1 % (0.0-2.0); EOSINOPHILS # 0.1 10^3/ul (0.0-0.5); EOSINOPHILS % 2.2 % (0.0-7.0); HEMATOCRIT 35.1 % (42.0-52.0); HEMOGLOBIN 11.8 g/dl (14.0-18.0); LYMPHOCYTES # 1.6 10^3/ul (0.8-2.9); LYMPHOCYTES % 29.3 % (15.0-51.0); MEAN CORPUSCULAR HEMOGLOBIN 29.1 pg (29.0-33.0); MEAN CORPUSCULAR HGB CONC 33.6 g/dl (32.0-37.0); MEAN CORPUSCULAR VOLUME 86.5 fl (82.0-101.0); MEAN PLATELET VOLUME 9.5 fl (7.4-10.4); MONOCYTE # 0.5 10^3/ul (0.3-0.9); MONOCYTES % 10.1 % (0.0-11.0); NEUTROPHIL # 3.1 10^3/ul (1.6-7.5); NEUTROPHILS % 57.1 % (39.0-77.0); PLATELET COUNT 217 10^3/UL (140-415); RED BLOOD COUNT 4.06 10^6/ul (4.70-6.10); RED CELL DISTRIBUTION WIDTH 12.8 % (11.5-14.5); WHITE BLOOD COUNT 5.4 10^3/ul (4.8-10.8)
[2017-09-05 09:55] LABS: ALBUMIN 3.1 g/dl (3.3-4.9); ALBUMIN/GLOBULIN RATIO 0.91; BILIRUBIN,INDIRECT 0.4 mg/dl (0-1.1); BILIRUBIN,TOTAL 0.4 mg/dl (0.2-1.3); CALCIUM 8.8 mg/dl (8.4-10.2); CHOL/HDL RATIO 4.8 RATIO; CREATININE 0.7 mg/dl (0.61-1.24); MAGNESIUM 1.7 mg/dl (1.7-2.5); PHOSPHORUS 2.7 mg/dl (2.5-4.9); POTASSIUM 3.7 mmol/L (3.5-5.1); TOTAL PROTEIN 6.5 g/dl (6.1-8.1)
[2017-09-05 10:22] LABS: THYROID STIMULATING HORMONE 1.69 MIU/L (0.465-4.680)
--- NOTE | 2017-09-05 11:16 | RADRPT ---
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 Location: [address] Ref. Physician: CARMELA SALINAS Quality: Adequate Procedures: Transthoracic echocardiogram with complete 2D, M-Mode, and doppler examination. Indications: Syncope. 2D/M Mode Doppler Measurement Value Normal Ranges Measurement Value Normal Ranges LVIDd 2D 3.7 3.5 - 5.6 cm AV Peak [place] 1.5 m/sec LVIDs 2D 2.7 2.1 - 4.1 cm AV Peak PG 9.2 mmHg LVPWd 2D 1.4 0.6 - 1.1 cm LVOT Peak [place] 1.3 m/sec IVSd 2D 1.2 0.6 - 1.1 cm LVOT Peak PG 7.0 mmHg AoR Diam 2D 2.5 2.0 - 3.7 cm MV E Peak [place] 0.8 m/sec EDV 2D 58.9 cm3 MV A Peak [place] 1.2 m/sec ESV 2D 19.2 cm3 MV E/A 0.7 MV Decel Time 229 msec MV Decel [place] 4 MV E/A 0.7 TR Peak [place] 3.5 m/sec TR Peak PG 48.1 mmHg RVSP 51.0 mmHg Findings Left Ventricle: Normal left ventricular systolic function. Normal left ventricular cavity size. Mild concentric left ventricular hypertrophy. Ejection fraction is visually estimated at 65 %. Tissue Doppler/Mitral Doppler indices are consistent with impaired relaxation (Stage I diastolic dysfunction). Right Ventricle: Normal right ventricular size. Normal right ventricular systolic function. Left Atrium: The left atrium is normal in size. Right Atrium: The right atrium is normal in size. Mitral Valve: Normal appearance and function of the mitral valve with trace physiologic regurgitation. Aortic Valve: No significant aortic stenosis. Aortic cusps appear mildly calcified. Trace aortic valve regurgitation. Tricuspid Valve: Normal appearance of the tricuspid valve. Estimated peak PA systolic pressure 51 mmHg. There is mild tricuspid regurgitation. Pulmonic Valve: Pulmonic valve not well visualized. There is trace pulmonic regurgitation. Pericardium: Normal pericardium with no significant pericardial effusion. Aorta: Normal aortic root. IVC: Normal size and normal respiratory collapse consistent with normal right atrial pressure. Conclusions Normal left ventricular systolic function. Normal left ventricular cavity size. Mild concentric left ventricular hypertrophy. Ejection fraction is visually estimated at 65 %. Tissue Doppler/Mitral Doppler indices are consistent with impaired relaxation (Stage I diastolic dysfunction). Normal right ventricular size. Normal right ventricular systolic function. The left atrium is normal in size. The right atrium is normal in size. Estimated peak PA systolic pressure 51 mmHg. There is mild tricuspid regurgitation. No significant valvular stenosis or regurgitation seen of remaining visualized valves. Normal pericardium with no significant pericardial effusion. Electronically Signed By: Virgil Ann 05-Sep-2017 11:16:31 -0800 Patient Name: SHELLY CHAWLA Study Date: 05-Sep-[id number]
--- NOTE | 2017-09-05 11:19 | PDOCDIS ---
Discharge Instructions CONDITION Patient Condition: Stable HOME CARE INSTRUCTIONS: Your diet recommendation is: carbohydrate-controlled. FOLLOW UP/APPOINTMENTS Follow-up Plan 1.Follow up with primary care physician in 1 week If you don't have one please let someone know, we can give you resources that may help you pick one. You may also call your insurance company to assign one to you. Review your medication list with your nurse before leaving and if you need new prescriptions please let your nurse know. I may have made changes to your home medications or given you new prescriptions, please let your primary doctor know as well. Stay compliant with your medications and report any side effects to your PCP or pharmacist. Return to the ER if you have any concerns and cannot reach your doctors or call your insurance company, they usually have a nurse that can help you. 2. Call 911 or go to the nearest emergency room if experiencing loss of consciousness, dizziness, chest pain, shortness of breath, vomiting/abdominal pain, speech difficulties, motor weakness or any unusual symptoms. CARMELA SALINAS NP Sep 05, 2017 11:19
--- NOTE | 2017-09-05 11:29 | DS ---
Date/Time of Note Date/Time of Note DATE: 09/05/17 TIME: 11:26 Discharge Summary Admission/Discharge Info Admit Date/Time Sep 04, 2017 at 13:48 Discharge Date/Time Discharge Diagnosis 1. Syncope, likely situational syncope secondary to being in a closed car. Ruled out for cardiac ischemia and acute neurovascular events. 2. Essential hypertension. 3. Dyslipidemia 4. Type 2 diabetes. 5. GERD 6. Pulmonary Hypertension Patient Condition: Stable Procedures 09/04/2017. CT brain without contrast. IMPRESSION: 1. No evidence of acute intracranial hemorrhage, infarcts, or acute intracranial pathology. 2. Mild chronic microvascular ischemic disease and diffuse volume loss. 3. Chronic left basal ganglia lacunar infarct 4. Stable left middle cranial fossa arachnoid cyst. 5. Mild atherosclerotic vascular disease 09/04/2017. Carotid duplex. IMPRESSION: Plaques are present within both internal carotid arteries without evidence of flow acceleration to suggest a hemodynamically significant stenosis; less than 50% stenosis bilaterally. Unchanged from the previous examination. 09/04/2017. 2D echocardiogram. Conclusions Normal left ventricular systolic function. Normal left ventricular cavity size. Mild concentric left ventricular hypertrophy. Ejection fraction is visually estimated at 65 %. Tissue Doppler/Mitral Doppler indices are consistent with impaired relaxation (Stage I diastolic dysfunction). Normal right ventricular size. Normal right ventricular systolic function. The left atrium is normal in size. The right atrium is normal in size. Estimated peak PA systolic pressure 51 mmHg. There is mild tricuspid regurgitation. No significant valvular stenosis or regurgitation seen of remaining visualized valves. Normal pericardium with no significant pericardial effusion. Hospital Course This is a 87-year-old male with a past medical history of hypertension, dyslipidemia, GERD, type 2 diabetes, who was brought to the emergency room for evaluation of feeling nauseated with dry heaves and transient loss of consciousness while he was sitting inside a closed car for a few minutes while his son was fueling the car. Patient's symptoms were completely resolved prior to arrival to the emergency room. Patient blood glucose was stable. Chest x- ray stable. Initial troponin negative. EKG without any cardiac ischemia. He was treated with aspirin and IV fluids. He was then admitted to telemetry floor. Patient was continued on home medication for underlying comorbid conditions. He was ruled out for ACS with serial troponins and serial EKGs. Patient had carotid ultrasound which revealed no significant stenosis. 2D echocardiogram stable with EF 60% except for mild pulmonary hypertension. At this time, most likely etiology of syncope is likely situational syncope. There is no further inpatient workup indicated. Patient was given instruction to avoid syncope provoking situations. Patient and family verbalized discharge instructions. He is stable for outpatient follow-up with continuation of home medication. ' Approximately 60 minute was spent in coordinating the discharge on this patient. Patient is evaluation with . Home Meds Active Scripts Losartan Potassium* (Cozaar*) 50 Mg Tablet, 100 MG PO DAILY for 30 Days, TAB Prov:REGIDOWOOD [place] 10/22/16 Atorvastatin Calcium (Atorvastatin Calcium) 20 Mg Tablet, 20 MG PO QHS for 30 Days, TAB Prov:REGIDOWOOD [place] 10/22/16 Reported Medications Insulin Glargine* (Lantus*) 100 Unit/Ml Soln, 30 UNIT SC DAILY, #1 VIAL 09/05/17 Insulin Aspart* (Novolog Insulin Pen*) 100 Unit/Ml Soln, 10 UNITS SC .SLIDING SCALE AC, EA 09/04/17 Ranitidine Hcl* (Ranitidine Hcl*) 150 Mg Tablet, 150 MG PO HS, #30 TAB 09/04/17 Aspirin* (Aspirin* (EC)) 81 Mg Tablet.dr, 81 MG PO DAILY, TAB 09/04/17 Discontinued Reported Medications Omeprazole* (Omeprazole*) 40 Mg Capsule.dr, 40 MG PO DAILY, #30 CAP 10/18/16 Discontinued Scripts Tamsulosin Hcl* (Flomax*) 0.4 Mg Cap.er.24h, 0.4 MG PO DAILY for 30 Days, CAP Prov:WOOD BRUCE 10/22/16 Insulin Glargine* (Lantus*) 100 Unit/Ml Soln, 30 UNIT SC QAM for 30 Days Prov:REGIDOWOOD [place] 10/22/16 Aspirin (Aspirin) 81 Mg Chew, 81 MG PO DAILY for 30 Days, TAB Prov:WOOD BRUCE 10/22/16 Follow-up Plan 1.Follow up with primary care physician in 1 week If you don't have one please let someone know, we can give you resources that may help you pick one. You may also call your insurance company to assign one to you. Review your medication list with your nurse before leaving and if you need new prescriptions please let your nurse know. I may have made changes to your home medications or given you new prescriptions, please let your primary doctor know as well. Stay compliant with your medications and report any side effects to your PCP or pharmacist. Return to the ER if you have any concerns and cannot reach your doctors or call your insurance company, they usually have a nurse that can help you. 2. Call 911 or go to the nearest emergency room if experiencing loss of consciousness, dizziness, chest pain, shortness of breath, vomiting/abdominal pain, speech difficulties, motor weakness or any unusual symptoms. Primary Care Provider Brijesh Tracy Pending Labs Laboratory Tests Test 09/04/17 11:45 09/04/17 12:14 09/04/17 15:37 09/04/17 17:03 White Blood Count 5.910^3/ul (4.8-10.8) Red Blood Count 4.0310^6/ul (4.70-6.10) Hemoglobin 12.0g/dl (14.0-18.0) Hematocrit 34.5% (42.0-52.0) Mean Corpuscular Volume 85.6fl (82.0-101.0) Mean Corpuscular Hemoglobin 29.8pg (29.0-33.0) Mean Corpuscular Hemoglobin Concent 34.8g/dl (32.0-37.0) Red Cell Distribution Width 12.8% (11.5-14.5) Platelet Count 74370^3/UL (140-415) Mean Platelet Volume 9.4fl (7.4-10.4) Neutrophils % 49.9% (39.0-77.0) Lymphocytes % 36.6% (15.0-51.0) Monocytes % 9.7% (0.0-11.0) Eosinophils % 2.4% (0.0-7.0) Basophils % 1.2% (0.0-2.0) Nucleated Red Blood Cells % 0.0/100WBC (0.0-0.0) Neutrophils # 2.910^3/ul (1.6-7.5) Lymphocytes # 2.210^3/ul (0.8-2.9) Monocytes # 0.610^3/ul (0.3-0.9) Eosinophils # 0.110^3/ul (0.0-0.5) Basophils # 0.110^3/ul (0.0-0.1) Nucleated Red Blood Cells # 0.010^3/ul (0.0-0.0) Prothrombin Time 12.8Sec (11.9-14.9) Prothrombin Time Ratio 1.0 INR International Normalized Ratio 0.95 Activated Partial Thromboplast Time 25.8Sec (25.0-35.0) Sodium Level 142mmol/L (135-144) Potassium Level 3.9mmol/L (3.5-5.1) Chloride Level 106mmol/L (97-110) Carbon Dioxide Level 27mmol/L (21-31) Anion Gap 13 (8-16) Blood Urea Nitrogen 31mg/dl (7-20) Creatinine 0.79mg/dl (0.61-1.24) Glucose Level 152mg/dl (70-220) Calcium Level 9.4mg/dl (8.4-10.2) Troponin I < 0.012ng/ml (0.00-0.12) < 0.012ng/ml (0.00-0.12) Bedside Glucose 162mg/dL (70-220) Urine Color YELLOW (YELLOW) Urine Clarity CLEAR (CLEAR) Urine pH 6.0 (5.0-9.0) Urine Specific [place] 1.012 (1.003-1.030) Urine Ketones TRACEmg/dL (NEGATIVE) Urine Nitrite NEGATIVEmg/dL (NEGATIVE) Urine Bilirubin NEGATIVEmg/dL (NEGATIVE) Urine Urobilinogen NEGATIVEmg/dL (NEGATIVE) Urine Leukocyte Esterase NEGATIVELeu/ul (NEGATIVE) Urine Microscopic RBC 1/HPF (0-5) Urine Microscopic WBC 1/HPF (0-5) Urine Hemoglobin NEGATIVEmg/dL (NEGATIVE) Urine Glucose 3+mg/dL (NEGATIVE) Urine Total Protein 1+mg/dl (NEGATIVE) Creatine Kinase 37IU/L (23-200) Creatine Kinase Index 3.2 Creatinine Kinase MB (Mass) 1.19ng/ml (0.0-2.4) Test 09/04/17 17:45 09/04/17 23:23 09/05/17 07:26 09/05/17 08:13 Bedside Glucose 270mg/dL (70-220) 310mg/dL (70-220) Creatine Kinase 40IU/L (23-200) Creatine Kinase Index 2.9 Creatinine Kinase MB (Mass) 1.16ng/ml (0.0-2.4) Troponin I 0.012ng/ml (0.00-0.12) White Blood Count 5.410^3/ul (4.8-10.8) Red Blood Count 4.0610^6/ul (4.70-6.10) Hemoglobin 11.8g/dl (14.0-18.0) Hematocrit 35.1% (42.0-52.0) Mean Corpuscular Volume 86.5fl (82.0-101.0) Mean Corpuscular Hemoglobin 29.1pg (29.0-33.0) Mean Corpuscular Hemoglobin Concent 33.6g/dl (32.0-37.0) Red Cell Distribution Width 12.8% (11.5-14.5) Platelet Count 74159^3/UL (140-415) Mean Platelet Volume 9.5fl (7.4-10.4) Neutrophils % 57.1% (39.0-77.0) Lymphocytes % 29.3% (15.0-51.0) Monocytes % 10.1% (0.0-11.0) Eosinophils % 2.2% (0.0-7.0) Basophils % 1.1% (0.0-2.0) Nucleated Red Blood Cells % 0.0/100WBC (0.0-0.0) Neutrophils # 3.110^3/ul (1.6-7.5) Lymphocytes # 1.610^3/ul (0.8-2.9) Monocytes # 0.510^3/ul (0.3-0.9) Eosinophils # 0.110^3/ul (0.0-0.5) Basophils # 0.110^3/ul (0.0-0.1) Nucleated Red Blood Cells # 0.010^3/ul (0.0-0.0) Sodium Level 140mmol/L (135-144) Potassium Level 3.7mmol/L (3.5-5.1) Chloride Level 105mmol/L (97-110) Carbon Dioxide Level 26mmol/L (21-31) Anion Gap 13 (8-16) Blood Urea Nitrogen 21mg/dl (7-20) Creatinine 0.70mg/dl (0.61-1.24) Glucose Level 246mg/dl (70-220) Hemoglobin A1c 10.6% (0-5.9) Calcium Level 8.8mg/dl (8.4-10.2) Phosphorus Level 2.7mg/dl (2.5-4.9) Magnesium Level 1.7mg/dl (1.7-2.5) Total Bilirubin 0.4mg/dl (0.2-1.3) Direct Bilirubin 0.00mg/dl (0.00-0.20) Indirect Bilirubin 0.4mg/dl (0-1.1) Aspartate Amino Transf (AST/SGOT) 20IU/L (15-46) Alanine Aminotransferase (ALT/SGPT) 39IU/L (13-69) Alkaline Phosphatase 87IU/L (42-121) Total Protein 6.5g/dl (6.1-8.1) Albumin 3.1g/dl (3.3-4.9) Globulin 3.40g/dl (1.3-3.2) Albumin/Globulin Ratio 0.91 Triglycerides Level 131mg/dl (0-149) Cholesterol Level 154mg/dl (100-200) LDL Cholesterol, Calculated 96mg/dl HDL Cholesterol 32mg/dl (31-75) Cholesterol/HDL Ratio 4.8RATIO Thyroid Stimulating Hormone (TSH) 1.690MIU/L (0.465-4.680) CARMELA SALINAS NP Sep 05, 2017 11:29
[2017-09-05] MEDS ORDERED: LANT3I SC (11:31)
[2017-09-06] MEDS ORDERED: INSULIN GLARGINE [LANtus] 3 ML PEN SC SCH ×2 (08:00)
== END 2017-09-05 13:08 | disposition home or self-care (01) ==
LOC: E/R 11:25 → MS3 13:48 → TEL 22:54
PROVIDERS: ADMIT Family Medicine; ATTEND Family Medicine
DX: R55 Syncope and collapse (principal); I10 Essential (primary) hypertension; E78.5 Hyperlipidemia, unspecified; E11.9 Type 2 diabetes mellitus without complications; K21.9 Gastro-esophageal reflux disease without esophagitis; I27.20 Pulmonary hypertension, unspecified; Z79.4 Long term (current) use of insulin; Z79.82 Long term (current) use of aspirin; Z88.0 Allergy status to penicillin
CPT/HCPCS: 36415; 70450; 71010; 80048; 80053; 80061; 81001; 82550; 82553; 82962; 83036; 83735; 84100; 84443; 84484; 85025; 85610; 85730; 93005; 93306; 93880; 99217; G0378; J1650; J1815; J7030

== ENCOUNTER 2017-09-20 19:54 | Inpatient (IN) | END 2017-09-24 11:45 | disposition home health service (06) | DRG 64 ==